=== PATIENT | male | born 1975 | race Caucasian/White ===

== ENCOUNTER 2017-08-20 08:56 | Inpatient (IN) ==
[2017-08-20] MEDS ORDERED: XOPENEX NEB INH ONE (09:23)
[2017-08-20] MEDS ORDERED: NS NEB INH SCH (09:30)
[2017-08-20 09:46] LABS: ALLEN TEST YES; BE -6.7 mmoll (-3.0-3.0); BLOOD TYPE ARTERIAL; DRAW SITE R RADIAL; METHB 0.8 % (0.0-1.5); O2(CT) 17.4 mL/dL (15.0-23.0); PCO2(98.6) 28 mmHg (35-45); PO2(98.6) 110 mmHg (60-100); SAMPLE BLOOD; SAO2 99.4 % (95.0-100.0); pH(98.6) 7.39 (7.35-7.45)
[2017-08-20 09:48] LABS: MODALITY CANNULA
[2017-08-20 09:51] LABS: MANUAL DIFF NEEDED? NO
[2017-08-20 09:55] LABS: BASO% 1.4 % (0.0-0.8); EOS% 1.4 % (0.0-10.0); HEMATOCRIT 39.3 % (42.0-52.0); HEMOGLOBIN 13.2 g/dL (14.0-18.0); IMM GRAN# 0.04 X1000 (0.0-0.04); IMM GRAN% 0.5 % (0.0-0.5); LYMPH# 1.18 X1000 (1.2-3.4); LYMPH% 16.1 % (20.5-51.1); MCH 32.9 PG (27-31); MCHC 33.6 g/dL (33-37); MONO# 0.92 X1000 (0.11-0.59); MONO% 12.6 % (1.7-9.3); MPV 10.2 FL (7.4-10.4); PLT 264 X1000 (130-400); RBC 4.01 XMIL (4.7-6.1)
[2017-08-20 10:13] LABS: AGAP 17; ALBUMIN 3.7 g/dL (3.5-5.0); ALKALINE PHOSPHATASE 129 U/L (32-122); BUN 14 mg/dL (8-22); CALCIUM 8.9 mg/dL (8.8-10.2); CHLORIDE 94 mmol/L (98-107); COSMO 262; GOT 192 U/L (10-34); GPT 196 U/L (10-44); MAGNESIUM 1.7 mg/dL (1.5-2.7); POTASSIUM 4.6 mmol/L (3.5-5.1); SODIUM 130 mmol/L (136-145); TCO2 19 mmol/L (25-35); TOTAL BILIRUBIN 2.15 mg/dL (0.20-1.00); TOTAL PROTEIN 7.3 g/dL (6.3-8.3)
[2017-08-20 10:19] LABS: CK PROFILE 346 U/L (24-204)
--- NOTE | 2017-08-20 10:35 | Diag Imaging Result Doc PS360 ---
EXAM: CHEST-2 VIEWS INDICATION: sob TECHNIQUE: 2 views COMPARISON: 05/05/2015 FINDINGS: There is suggestion of minimal subsegmental atelectasis in the right midlung zone. The lungs are grossly clear, otherwise. There is no discrete pleural fluid collection or pneumothorax. There are stable median sternotomy wires and a prosthetic heart valve. There is stable cardiomegaly. Central vasculature is unremarkable. IMPRESSION: Cardiomegaly and minimal subsegmental atelectasis at the right midlung zone. No definite acute pathology, otherwise. Electronically signed by Esteban Whitlock 08/20/2017 10:33 AM
[2017-08-20 10:37] LABS: CK INDEX 2.1 (0.0-2.5); CK-MB 7.37 ng/mL (0.0-5.0)
[2017-08-20] MEDS ORDERED: BENADRYL IV ONE (10:40)
[2017-08-20] MEDS ORDERED: LASIX IV ONE (10:46)
[2017-08-20] MEDS ORDERED: LASIX ONE (10:47)
[2017-08-20 11:19] LABS: INR > 8.32; PROTIME > 100.0 Seconds (9.2-11.7); PTT 43.9 Seconds (22.0-36.0)
--- NOTE | 2017-08-20 13:02 | Diag Imaging Result Doc PS360 ---
EXAM: CT ANGIOGRM/PULMONARY ARTERIES INDICATION: sob; elevated ddimer; on coumadin TECHNIQUE: In addition to standard thin section CTA images, coronal and radial MIPS were obtained. Dose reduction protocol was used. COMPARISON: 05/05/2015 FINDINGS: There is no evidence of pulmonary embolism. There is very little contrast in the aorta. There is mild patchy aortic atherosclerotic calcification but no evidence of aortic aneurysm. There is marked cardiomegaly similar to the previous study. Shotty nonspecific mediastinal lymph nodes are stable. There is patchy vague groundglass opacity throughout both lungs and interstitial thickening suggesting mild to moderate interstitial edema. There are very small bilateral pleural effusions. Limited views of the upper abdomen reveal a small amount of ascites tracking around the liver. IMPRESSION: 1.Cardiomegaly. 2.Mild to moderate pulmonary edema and very small bilateral effusions. 3.Small amount of ascites tracking around the liver. 4.No evidence of pulmonary embolism. Electronically signed by Esteban Whitlock 08/20/2017 1:00 PM
--- NOTE | 2017-08-20 13:39 | PROVIDER DOCUMENTATION ---
This chart was entered by Kristin Lai Scribe, acting as scribe for Olvin Hair MD. HPI-Respiratory General - General Chief Complaint: Shortness of Breath Stated Complaint: SOB, SWELLING Time Seen by Provider: 08/20/17 09:10 Source: patient Allergies/Adverse Reactions: Patient Allergies Allergy/AdvReac Type Severity Reaction Status Date / Time No Known Allergies Allergy Verified 08/20/17 09:33 Home Medications: Home Medication List Medication Instructions Recorded Confirmed Last Taken Type Warfarin [Coumadin] 4 mg PO QHS 03/24/13 08/20/17 05/08/17 History Furosemide [Lasix] 20 mg PO DAILY #30 tablet 05/07/15 08/20/17 05/09/17 Rx LISINOpril [Prinivil] 2.5 mg PO DAILY #30 tablet 05/07/15 08/20/17 05/09/17 Rx - History of Present Illness-Resp Nature of Presenting Problem: Pt is a 42 y/o M presents to the ED with shortness of breath and bilateral eye lid swelling. Pt states symptoms have gradual worsened over the past week. Pt denies chest pain. Pt states he is a smoker. Pt states dry cough. Pt states hx of ID with stents. Pt's aspirin held due to being on Coumadin. Quality of Pain: reports: tightness Severity in ED: reports: moderate Onset/Duration: reports: gradual, 1 week ago Timing: reports: still present, getting worse Exposure: reports: unknown cause Cough Quality/Degree: reports: moderate, dry cough Episode Frequency: chronic episodes Current Respiratory Medication Therapy: Initiated see nurses note Modifying Factors: improves with: nothing Associated Symptoms: reports: cough, shortness of breath, other (bilateral eyelid swelling) Similar Symptoms Previously?: Yes (present for one week ) Recently seen or treated by another doctor?: No Review of Systems - Adult - REVIEW OF SYSTEMS - ADULT Constitutional: denies: chills, fever Eyes: reports: other (bilateral eyelid swelling). denies: decreased vision, blurred vision, double vision Ears, Nose, Mouth & Throat: denies: ear pain, nose pain, throat pain Cardiovascular: denies: chest pain, heart murmur, irregular heart rate Respiratory: reports: cough, shortness of breath. denies: wheezing Gastrointestinal: denies: abdominal pain, diarrhea, nausea, vomiting Genitourinary: denies: dysuria, flank pain, hematuria Musculoskeletal: denies: bone pain, joint pain, neck pain Integumentary: denies: hives, itching, rash Neurological: denies: dizziness/vertigo, headache/migraines, numbness, seizure, syncope Psychiatric: denies: anxiety, depression, suicidal thoughts Endocrine: reports: no symptoms reported Hematologic/Lymphatic: reports: no symptoms reported Allergic/Immunologic: reports: no symptoms reported All Other Systems: Reviewed and Negative Past History - Adult - PAST MEDICAL HISTORY-ADULT Review of Records: reports: Nursing Assessment Review, Medications Reviewed, Social history reviewed & non-contributory. Major Childhood Illnesses: reports: denies history Cardiovascular: reports: CHF, heart valve problem ([facility]) Respiratory: reports: denies history Gastrointestinal: reports: denies history Obstetrical/Gynecological: reports: denies history Genitourinary: reports: denies history Musculoskeletal: reports: denies history Neurological: reports: denies history Endocrine/Immune: reports: denies history Other Conditions: reports: denies history - PRIOR SURGERIES/PROCEDURES Surgical/Procedure History: reports: CABG - IMMUNIZATION STATUS Childhood Immunizations: See Nurse Assessment Flu Vaccine: See Nurse Assessment - FAMILY HISTORY Family History: reviewed, not pertinent - SOCIAL HISTORY Smoking: cigarettes, less than 1 pack/day Provider spent 3-5 mins advising pt. on dangers of tobacco.: Discussed manners to quit use, and f/u contacts for add'l counseling. Substance Use: alcohol Alcohol Use Frequency: occasionally Number of drinks per typical drinking period:: 2 drinks Living Situation: family Physical Exam-General - PHYSICAL EXAM-ADULT Initial Vital Signs Reviewed: Yes - CONSTITUTIONAL General Appearance: alert, mild distress. negative: lethargic, slow to respond - EYES Eyes: PERRL/EOMI, pink conjunctivae. negative: pale conjunctivae, sunken eyes - HEAD, EARS, NOSE, MOUTH & THROAT HENMT: normocephalic/atraumatic, moist mucous membranes, angioedema (bilateral eyelids). negative: hearing deficit, pharyngeal erythema - NECK Neck: normal inspection. negative: lymphadenopathy, tender lateral - RESPIRATORY Respiratory: chest non-tender, lungs clear, normal breath sounds, increased rate . negative: crackles, rhonchi - CARDIOVASCULAR Cardiovascular: normal peripheral pulses, tachycardia, systolic murmur (with click at the end). negative: regular rate, rhythm - GASTROINTESTINAL (ABDOMEN) Abdominal Exam: normal bowel sounds, non tender, soft. negative: guarding, rebound - LYMPHATIC Lymphatic: no adenopathy. negative: enlargement, streaking - MUSCULOSKELETAL Back Exam: normal inspection. negative: ecchymosis, vertebral tenderness Extremity: normal range of motion, non-tender, pedal edema (bilateral 2 + pitting edema to lower extremities). negative: deformity, erythema - SKIN Integumentary: normal color, normal turgor, warm/dry, other (well healed surgical scar to mid chest). negative: diaphoresis, erythema, laceration(s), pallor, rash - NEUROLOGIC Neurologic: grossly normal. negative: aphasia, facial droop - PSYCHIATRIC Psych/Mental Status: normal mood/affect, oriented x 3. negative: paranoid, tearful Progress - PLAN OF CARE/RESULTS Progress/Plan/Lab Results: Vital Signs - 8 hr 08/20/17 08:58 08/20/17 09:15 08/20/17 09:31 Temperature 98.0 F Pulse Rate 111 H Respiratory Rate 24 Blood Pressure 133/118 O2 Sat by Pulse Oximetry 86 L 08/20/17 09:35 08/20/17 09:46 08/20/17 10:43 Temperature Pulse Rate 101 H 106 H Respiratory Rate 15 27 H Blood Pressure 136/93 O2 Sat by Pulse Oximetry 71 L 100 95 Laboratory Results - last 24 hr 08/20/17 08/20/17 08/20/17 09:23 09:30 09:30 WBC 7.31 RBC 4.01 L Hgb 13.2 L Hct 39.3 L MCV 98.0 MCH 32.9 H MCHC 33.6 RDW Std Deviation 13.9 Plt Count 264 MPV 10.2 Immature Gran % (Auto) 0.5 Neut % (Auto) 68.0 Lymph % (Auto) 16.1 L [place] % (Auto) 12.6 H Eos % (Auto) 1.4 Baso % (Auto) 1.4 H Immature Gran # (Auto) 0.04 Neut # (Auto) 4.97 Lymph # (Auto) 1.18 L [place] # (Auto) 0.92 H Eos # (Auto) 0.10 Baso # (Auto) 0.10 PT INR PTT (Actin FS) D-Dimer Specimen Type ARTERIAL Sample Site R RADIAL pH 7.39 pCO2 28 L pO2 110 H HCO3 19.6 L Base Excess -6.7 L Oxyhemoglobin 94.5 L ABG O2 Sat (Calculated) 17.4 ABG O2 Saturation 99.4 ABG Carboxyhemoglobin 4.10 H ABG Methemoglobin 0.8 Collin Test YES A-a O2 Difference 83.0 Total Hemoglobin 13.0 Lactate 1.90 Liter Flow 3.0 Blood Gas Modality CANNULA FiO2 % 32.0 Sodium 130 L Potassium 4.6 Chloride 94 L Carbon Dioxide 19 L Anion Gap 17 BUN 14 Creatinine 0.9 Estimated GFR/1.73 m2 > 60 BUN/Creatinine Ratio 16 Glucose 105 H Calculated Osmolality 262 Calcium 8.9 Magnesium 1.7 Total Bilirubin 2.15 H AST 192 H ALT 196 H Alkaline Phosphatase 129 H Creatine Kinase 346 H Creatine Kinase Index 2.1 CK-MB (CK-2) 7.37 H Troponin T Lex-S-Knsxmywmtfn Pept Total Protein 7.3 Albumin 3.7 Globulin 3.6 Albumin/Globulin Ratio 1.0 08/20/17 08/20/17 08/20/17 09:30 09:30 09:30 WBC RBC Hgb Hct MCV MCH MCHC RDW Std Deviation Plt Count MPV Immature Gran % (Auto) Neut % (Auto) Lymph % (Auto) [place] % (Auto) Eos % (Auto) Baso % (Auto) Immature Gran # (Auto) Neut # (Auto) Lymph # (Auto) [place] # (Auto) Eos # (Auto) Baso # (Auto) PT INR PTT (Actin FS) D-Dimer 1.97 H Specimen Type Sample Site pH pCO2 pO2 HCO3 Base Excess Oxyhemoglobin ABG O2 Sat (Calculated) ABG O2 Saturation ABG Carboxyhemoglobin ABG Methemoglobin Collin Test A-a O2 Difference Total Hemoglobin Lactate Liter Flow Blood Gas Modality FiO2 % Sodium Potassium Chloride Carbon Dioxide Anion Gap BUN Creatinine Estimated GFR/1.73 m2 BUN/Creatinine Ratio Glucose Calculated Osmolality Calcium Magnesium Total Bilirubin AST ALT Alkaline Phosphatase Creatine Kinase Creatine Kinase Index CK-MB (CK-2) Troponin T < 0.010 Ztz-Q-Ntctqcwzxti Pept 5504 H Total Protein Albumin Globulin Albumin/Globulin Ratio 08/20/17 10:34 WBC RBC Hgb Hct MCV MCH MCHC RDW Std Deviation Plt Count MPV Immature Gran % (Auto) Neut % (Auto) Lymph % (Auto) [place] % (Auto) Eos % (Auto) Baso % (Auto) Immature Gran # (Auto) Neut # (Auto) Lymph # (Auto) [place] # (Auto) Eos # (Auto) Baso # (Auto) PT > 100.0 H INR > 8.32 H* PTT (Actin FS) 43.9 H D-Dimer Specimen Type Sample Site pH pCO2 pO2 HCO3 Base Excess Oxyhemoglobin ABG O2 Sat (Calculated) ABG O2 Saturation ABG Carboxyhemoglobin ABG Methemoglobin Collin Test A-a O2 Difference Total Hemoglobin Lactate Liter Flow Blood Gas Modality FiO2 % Sodium Potassium Chloride Carbon Dioxide Anion Gap BUN Creatinine Estimated GFR/1.73 m2 BUN/Creatinine Ratio Glucose Calculated Osmolality Calcium Magnesium Total Bilirubin AST ALT Alkaline Phosphatase Creatine Kinase Creatine Kinase Index CK-MB (CK-2) Troponin T Tar-Q-Fcadltqvqir Pept Total Protein Albumin Globulin Albumin/Globulin Ratio Orders Category Date Time Status Cardiac Monitoring DIRECTED Care 08/20/17 09:24 Active Saline Loc NOW Care 08/20/17 09:24 Active CHEST-2 VIEWS [RAD] Stat Exams 08/20/17 09:24 Completed ABG [RESP] Routine Lab 08/20/17 09:23 Completed CBC WITH ELECTRONIC DIFF [HEME] Stat Lab 08/20/17 09:30 Completed CK PROFILE [SP CHEM] Stat Lab 08/20/17 09:30 Completed COMPREHENSIVE METABOLIC PANEL [CHEM] Stat Lab 08/20/17 09:30 Completed D-DIMER [CHEM] Stat Lab 08/20/17 09:30 Completed MAGNESIUM [CHEM] Stat Lab 08/20/17 09:30 Completed PRO B-NATRIURETIC PEPTIDE Stat Lab 08/20/17 09:30 Completed PROTIME WITH INR [COAG] Stat Lab 08/20/17 10:34 Completed PTT [COAG] Stat Lab 08/20/17 10:34 Completed TROPONIN T Stat Lab 08/20/17 09:30 Completed Diphenhydramine [Benadryl] Med 08/20/17 10:40 Discontinued 25 mg IV NOW ONE Furosemide [Lasix] Med 08/20/17 10:47 Discontinued 100 mg .ROUTE .STK-MED ONE Furosemide [Lasix] Med 08/20/17 10:46 Discontinued 60 mg IV NOW ONE Levalbuterol Neb [Xopenex Neb] Med 08/20/17 09:23 Discontinued 1.25 mg INH NOW ONE Sodium Chloride 0.9% Neb [Ns Neb] Med 08/20/17 09:30 Active 5 ml INH DIRECTED Aerosol Treatments Routine Oth 08/20/17 09:24 Completed Aerosol Treatments Stat Oth 08/20/17 09:24 Completed BIPAP Stat Oth 08/20/17 09:24 Active EKG [EKG] Stat Ther 08/20/17 09:24 Ordered Result Diagrams: 08/20/17 09:30 08/20/17 09:30 - EKG 1 Time of EKG reading by physician:: 09:00 EKG Read and Signed by:: Rosa Hair EKG Interpretation (*Must complete 3 of following elements*): Abnormal (LBBB) Rate: 110 Rhythm: sinus tachycardia Comments: possible left atrial enlargement; left axis deviation - XRAY 1 XRAY Study: Chest Impression: Abnormal (Cardiomegaly and minimal subsegmental atelectasis at the right midlung zone. No definite acute pathology, otherwise) - CONSULTS/PCP/HOSPITALIST Notification #1 *Consult/PCP/Hospitalist*: ALYSIA Arteaga for Hospitalist Time Discussed: 11:26 (Dr. Velez accepted Pt ) Reason/Comments: Dr. Hair consults with ESHA Arteaga about Pt Consult Disposition: Admit Departure - Departure Date of Disposition Decision: 08/20/17 Time of Disposition Decision: 11:27 DIAGNOSIS: SOB (shortness of breath), CHF (congestive heart failure) Disposition: ADMITTED INPATIENT 09 Certified Medical Emergency: Emergent Condition: Stable Referrals and Follow-Ups: Radha Melendrez MD [Primary Care Provider] - - Critical Care Note This patient required my direct & personal management of CC.: Yes Total Time (mins): 30 Critical Care Statement: This patient required my direct personal management to treat or rule out processes, the absence of which, could potentiallly result in sudden, clinically significant life or limb threatening deterioration. Attestation - Physician/ LATOYA Attestation Patient care was provided by Advanced Practice Provider:: No The physician spent face to face time with patient:: Yes Advanced Practice Provider documentation review:: Supervising physician onsite and consulted in the evaluation and care of this patient. The physician did have a face to face encounter with the patient. This chart was documented by the indicated scribe, (Kristin Lai Scribe) and accurately reflects the services I performed and decisions made by me, Rosa Hair MD, as attested by the provider's signature.
[2017-08-20] MEDS ORDERED: VITAMIN K PO ONE (14:11)
--- NOTE | 2017-08-20 16:25 | HISTORY AND PHYSICAL ---
PRIMARY CARE PROVIDER: Radha Melendrez that he is supposed to see for the first time September 01. GRINDER SET UP OPERATOR UNIVERSAL: Dr. Morales in [place]. CHIEF COMPLAINT: Shortness of breath. Generalized edema. HISTORY OF PRESENT ILLNESS: Mr. Peguero is a 42-year-old male with a medical history of coronary artery disease, systolic congestive heart failure, mechanical aortic valve replacement with aortic root and pulmonary hypertension who presents to the emergency room with complaints of shortness of breath over the last 1 week along with progressive swelling in the abdomen, the lower extremities and in the face. He states that he also has chills, some sinus clear phlegm, dry cough essentially states he cannot breathe when he sleeps on his back so he always sleeps on his side. Any distance greater than 20 feet causes him have significant shortness of breath. He has not weighed himself so was unsure if he has gained weight but feels like he has, denies, nausea vomiting, denies chest pain. He does feel like his guts feel a little bit sore. He woke up this morning feeling like he was smothering so came here for medical attention. He was found to have an INR greater than 8.32, he does take Coumadin at home. He states he did not take it last night. His D-dimer is elevated at 1.97. He had a chest CTA, pulmonary arteriogram which was negative for PE but did show mild to moderate pulmonary edema with bilateral effusions and ascites around the liver. He received Lasix in the ER and felt as though he is breathing much better. His saturations on room air was in the 80s on 4 L. It was low 90s. Will admit to CICU and consult Cardiology. PAST MEDICAL HISTORY: Coronary artery disease, myocardial infarction, apparently had OH in 2013, he had a congenital aortic valve, bicuspid aortic valve with aortic stenosis now status post mechanical aortic valve replacement with aortic root in 2011, he has systolic congestive heart failure with an EF around 20-25%. SURGICAL HISTORY: Aortic valve replacement with aortic root in 2011, also has cardiac stents, no other surgeries. SOCIAL HISTORY: Smokes a half a pack per day for 28 years. Drinks alcohol on a rare occasion he states 1-2 beers rarely. Denies illicit drug use. Lives at home with his mother, he is on disability, he is not without children. FAMILY HISTORY: Positive for coronary artery disease and diabetes mellitus type 2. ALLERGIES: No known drug allergies. HOME MEDICATIONS: Lasix 20 mg p.o. daily, lisinopril 2.5 mg p.o. daily, Coumadin 4 mg p.o. nightly. REVIEW OF SYSTEMS: Fourteen point review of systems were complete and all were negative except for those mentioned above HPI. Positive shortness of breath, clear phlegm but only in the mornings and dry cough, swelling. PHYSICAL EXAMINATION: VITAL SIGNS: Temperature 98.0 degrees, heart rate 113, respiratory rate 15, blood pressure 131/78, O2 saturation 98% on 3 L nasal cannula. GENERAL: Mr. Nima Peguero is a 42-year-old male, he is in no acute distress, he is able answer questions appropriately. HEENT: Atraumatic, normocephalic. Pupils equal, round, reactive to light. He does has a good bit of edema underneath eyes, mucous membranes are moist. NECK: Trachea midline. Mild JVD. CARDIOVASCULAR: S1, S2. Tachycardic rate, rhythm, no rubs, gallops or murmurs. The mechanical aortic valve is noted, mild JV day about a 1 to 2, negative for carotid bruits. He has got abdominal edema, lower extremity pitting edema about 1-2, he has got +2 dorsalis and radial pulses. PULMONARY: Clear to auscultate, bilateral breath sounds, decreased in the bases. No accessory muscle use or work of breathing noted currently on nasal cannula. GI: Soft, nontender, nondistended. Positive bowel sounds x4. EXTREMITIES: Moves all extremities equally. NEURO: A and O x4. Sensory is intact. SKIN: Warm, dry, intact. LABORATORY DATA: White blood cells 7000, hemoglobin 13, hematocrit 39, platelet count 264,000. INR is greater than 8.32, PTT is 43.9, D-dimer is 1.97. ABGs pH 7.39, pCO2 28 , PO2 is 110, bicarb 19, base excess -6, saturation 94%, lactate 1.9 this is on 3 L nasal cannula. Sodium 130, potassium 4.6, BUN 14, creatinine 0.9, glucose 105, magnesium 1.7, total bilirubin 2.15, AST 192, ALT 196, CK 346, index 2.1, MB 7.37, troponin less than 0.01, ProBNP 5504, albumin 3.7. IMAGING: Chest x-ray cardiomegaly, minimal subsegmental atelectasis in the right mid lung zone, no acute pathology. Pulmonary arteriogram cardiomegaly, mild to moderate pulmonary edema, very small bilateral pleural effusions. Small amount of ascites tracking around the liver, no evidence of pulmonary embolism. ASSESSMENT AND PLAN: 1. Acute on chronic systolic congestive heart failure. Lasix 60 mg IV given in the emergency room . It does not appear that he is on any sort of beta juan at home. He has heart rate that sinus tach, blood pressure stable at the moment in the 130s systolic, he does take Lasix 20 mg p.o. daily at home, will consult Cardiology. 2. Aortic valve replacement mechanical on Coumadin therapy. States he did not take it last night but still has a INR level greater than 8.32. He will receive 1 dose p.o. of vitamin K 5 mg and will check his INR daily, no signs of bleeding at this time. 3. Elevated D-dimer. Chest CTA ruled out pulmonary emboli. 4. Hyperbilirubinemia with transaminitis. This could be secondary to congestive heart failure. Will repeat in the morning. 5. Deep venous thrombosis prophylaxis SCDs, is actually supratherapeutic. 6. History of coronary artery disease and myocardial infarction with stents, no complaints chest pain at the time. Patient seen and examined by me face to face at the ED, all the lab work, vitals signs and images were reviewed, at the moment of my physical exam this patient was felling better, he does have a mechanical valve and he has been on coumadin, his INR is supratherapeutic, cardiology department will be on board, he will be monitor in the CIC unit, I agree with the assessment and plan, Rosie Torres MD Dictated by ALYSIA Hammonds for Bandar Livingston MD cc: ALYSIA Hammonds MD [facility]
[2017-08-20] MEDS ORDERED: LANOXIN IV SCH (17:00)
[2017-08-20] MEDS ORDERED: ALDACTONE PO ONE (17:50)
[2017-08-20] MEDS ORDERED: ZOFRAN IV PRN (17:50)
[2017-08-20 17:55] LABS: INR 5.26; PROTIME 61.4 Seconds (9.2-11.7)
--- NOTE | 2017-08-20 18:18 | CONSULTATION ---
DATE OF CONSULTATION: 08/20/2017 CHIEF COMPLAINT: Shortness of breath, swelling. HISTORY: Mr. Peguero is an unfortunate 42-year-old male who [facility]. She presented to the emergency department this morning, at about 9:30 in the morning, with symptoms of increasing dyspnea that has been going on for over a week, associated with swelling of the lower extremities. The patient acknowledges that this has happened before at least once and he was diagnosed with congestive heart failure back then. The present symptoms started initially like a bout of sneezing, cough, and some increasing dyspnea. He took some cough decongestant medication over the counter, however, it did not seem to work for him. At the time of presentation his chest x-ray shows cardiomegaly, minimal subsegmental atelectasis at the right midlung zone, no definite acute pathology. They checked a proBNP level. That was 5504. BUN and creatinine were normal. Sodium 130. They checked a D-dimer. That was elevated and, because of that, they went ahead and did a CT angiogram of the pulmonary arteries which has been reported by Dr. Whitlock as indicating cardiomegaly, mild-to- moderate pulmonary edema, very small bilateral effusions, small amount of ascites tracking around the liver, no evidence of pulmonary embolism. Of note, his PT INR is supratherapeutic, actually in toxic range with an INR of 8.32. Basically his blood is unclottable. His hemoglobin is 13.2, white count 7310. He denies having any chest pain. No dizziness or syncope. He has not seen any blood in the stools or in the urine. PAST MEDICAL HISTORY: His past history is significant for a finding of aortic stenosis back around 2011. At that time he was sent to [facility]. Back then he had a normal ejection fraction and his heart catheterization showed normal coronary arteries. The patient underwent aortic valve replacement with a Hemashield graft to the aortic root in [address] Goff. Since then he has been on anticoagulation, warfarin. 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 This led to acute intervention performed by Dr. Phillip. He performed intervention on the proximal LAD and the proximal mid circumflex. The right coronary artery was free of any disease. Since then the patient's ejection fraction dropped. It went down to 35%. He has been managed by Dr. Morales in [place]. However, the patient, again due to his lack of insurance, has not been able to comply with the followup appointments and also with the necessary pro- time checkups. His history includes some depression in the past with some suicidal ideation. SOCIAL HISTORY: He is single, lives with his mother. He has no children. Presently he is unemployed. 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 Presently he has been granted Medicaid and disability. The patient probably has some seasonal allergies. He smokes half a pack of cigarettes a day. He used to drink some beer occasionally. FAMILY HISTORY: Positive for coronary heart disease. He has 2 siblings who are alive. One sister has lupus. Brother is healthy. HOME MEDICATIONS: His home medicines at the time of this presentation included: 1. Warfarin 4 mg at bedtime. 2. Lisinopril 2.5 daily. 3. Furosemide 20 daily. 4. Coreg (carvedilol) 3.125 twice a day. ALLERGIES: He has no reported allergies. REVIEW OF SYSTEMS: Review of systems is basically positive for exertional dyspnea. Other than that, he has no major abnormalities on the 10 systems reviewed including cardiac , pulmonary, gastrointestinal, musculoskeletal, eyes, vision, skin, psychiatric, neurological , etc. He is not diabetic. He does not have any thyroid issues. PHYSICAL EXAMINATION: Vital signs: Blood pressure is 131/78, pulse initially 113, temperature 98 degrees, respirations 15. General: He is awake, alert, oriented, in no distress. HEENT: Slight prominence of the jugular veins. He does have some puffiness of the eyelids, some redness. He says that is not itchy. Chest: Shows diminished breath sounds diffusely. Some rhonchi. Cardiac: Heart sounds are regular and rhythmic. He does have a summation gallop and a closing click of the prosthetic mitral valve in diastole. Abdomen: Nontender. Soft. No hepatomegaly. Extremities: Showed trace edema, brawny edema 1+, with normal pulses. IMPRESSION: 1. Patient who presented with increasing dyspnea and radiographic and clinical findings consistent with congestive heart failure exacerbation. He has chronic systolic heart failure secondary to prior extensive myocardial infarction due to thrombotic occlusion of the LAD and circumflex. 2. 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 3. Long-term anticoagulation with warfarin. 4. Coumadin toxicity. 5. Medical noncompliance. RECOMMENDATIONS: At this point in time, we will try to adjust his medicines. I suggest to add digoxin and spironolactone to his regimen. Further advice will be forthcoming. Thank you again for the opportunity to participate in his evaluation. cc: Liam Feldman MD MTD
[2017-08-20 19:03] LABS: CK INDEX 1.9 (0.0-2.5); CK-MB 5.61 ng/mL (0.0-5.0)
[2017-08-20] MEDS: LASIX IV SCH (20:38)
[2017-08-21 03:55] LABS: CK INDEX 1.6 (0.0-2.5); CK-MB 4.52 ng/mL (0.0-5.0)
[2017-08-21 05:02] LABS: MANUAL DIFF NEEDED? NO
[2017-08-21 05:21] LABS: BASO% 0.8 % (0.0-0.8); EOS# 0.13 X1000 (0.0-0.7); EOS% 1.8 % (0.0-10.0); HEMATOCRIT 37.1 % (42.0-52.0); HEMOGLOBIN 12.5 g/dL (14.0-18.0); IMM GRAN# 0.02 X1000 (0.0-0.04); IMM GRAN% 0.3 % (0.0-0.5); LYMPH# 1.22 X1000 (1.2-3.4); LYMPH% 16.6 % (20.5-51.1); MCH 32.7 PG (27-31); MCHC 33.7 g/dL (33-37); MCV 97.1 FL (81-99); MONO# 0.86 X1000 (0.11-0.59); MONO% 11.7 % (1.7-9.3); MPV 10.4 FL (7.4-10.4); NEUT% 68.8 % (42.2-75.2); PLT 224 X1000 (130-400); RBC 3.82 XMIL (4.7-6.1)
[2017-08-21 05:56] LABS: INR 3.03; PROTIME 34.1 Seconds (9.2-11.7)
--- NOTE | 2017-08-21 06:03 | EKG Report ---
Test Performed on : 08/20/2017 09:00:56 AM Test Reason : reordered/cp Blood Pressure : / mmHG Vent. Rate : 110 BPM Atrial Rate : 110 BPM P-R Int : 194 ms QRS Dur : 172 ms QT Int : 340 ms P-R-T Axes : 010 -67 126 degrees QTc Int : 460 ms Sinus tachycardia. Possible Left atrial enlargement Left axis deviation Left bundle branch block Abnormal ECG When compared with ECG of 06-MAY-2015 06:58, No significant change was found Unconfirmed Result
--- NOTE | 2017-08-21 07:22 | Diag Imaging Result Doc PS360 ---
EXAM: CHEST-PORTABLE HISTORY: Heart failure TECHNIQUE: Portable AP COMPARISON: 08/20/2017 FINDINGS: Sternal wires are present. The heart remains mildly enlarged. Mild central vascular prominence. No pleural effusions identified. There are old left rib fractures. No consolidation. IMPRESSION: Mild cardiomegaly with central vascular prominence. Electronically signed by Abhijit Tinoco 08/21/2017 7:20 AM
[2017-08-21 07:34] LABS: CK INDEX 1.7 (0.0-2.5); CK-MB 4.72 ng/mL (0.0-5.0)
--- NOTE | 2017-08-21 07:35 | EKG Report ---
Test Performed on : 08/21/2017 06:48:52 AM Test Reason : Heart Failure Admission Blood Pressure : / mmHG Vent. Rate : 091 BPM Atrial Rate : 091 BPM P-R Int : 202 ms QRS Dur : 186 ms QT Int : 442 ms P-R-T Axes : 056 -79 108 degrees QTc Int : 543 ms Normal sinus rhythm. Left axis deviation Left bundle branch block Abnormal ECG When compared with ECG of 20-AUG-2017 09:00, (Unconfirmed) No significant change was found Confirmed by Edgardo LIANG, Collin Lopez ([id number]) on 08/21/2017 5:00:33 PM
--- NOTE | 2017-08-21 09:44 | PROGRESS NOTE ---
DATE: 08/21/2017 CHIEF COMPLAINT: Shortness of breath and fatigue. SUBJECTIVE: Mr. Peguero is feeling better today. His breathing is more comfortable, he is lying flat. He feels like he is back to his normal self. Chest x-ray done today shows mild cardiomegaly with central vascular prominence. His ProBNP has come down to 4738. His INR has also improved and now is therapeutic at 3.03. His cardiac enzymes were checked 3 times, and they are basically negative. His EKG today shows sinus rhythm with a pattern of interventricular conduction delay, leftward axis. This is unchanged when compared to prior EKGs done on him. He is not having any chest pain. OBJECTIVE: Blood pressure is 100/67, temperature 97.8, pulse 94, respirations 20. He is awake, alert and oriented, in no distress. HEENT is unremarkable. Slightly prominent jugular veins. Chest is clear to auscultation and percussion. Heart sounds are regular and rhythmic. He does have a third heart sound. He does have a diastolic closure click of his prosthetic [facility] valve. Abdomen is nontender. Extremities showed no edema. Neurologic: He follows commands, moves all 4 extremities. DIAGNOSTIC DATA: Blood work, as I said, shows negative cardiac enzymes. CK index was 1.9 and 1.6. The highest index was 2.1 the very moment of presentation. His total CPK highest was 346 and then 298. His TSH is 4.8. His hemoglobin is 12.5, white count 7360. Again , his INR has normalized. IMPRESSION: 1. The patient presented with systolic heart failure, decompensated. This is chronic, secondary to thrombotic occlusion of LAD and circumflex due to poorly anticoagulated status post aortic valve replacement. That happened 3 years ago. He had to have emergency intervention to both arteries. 2. Status post aortic valve replacement with a [employer] Kings valve for severe aortic stenosis in 2011. 3. Medical noncompliance. RECOMMENDATIONS: Since Mr. Peguero has now access to the benefits of disability and Medicaid, I have encouraged him to be more compliant with his regimen of Warfarin and his frequent checkups of ProTime and INR. I told him that he could be treated locally here in [place] since he is a resident of [place]. He does not need to commute to [place] for his basic care. We will make arrangements through the office and hopefully will get him stabilized on medical therapy. I have added digoxin and spironolactone to his regimen. We might consider further down the road up titration of beta blockers and GISELLE inhibitors depending on his levels of systemic blood pressure and his general tolerance to those medications. Further advice will be forthcoming. cc: Liam Feldman MD MTDD
[2017-08-21] MEDS: LASIX IV SCH ×2 (10:14→20:34)
[2017-08-21] MEDS: ALDACTONE PO SCH (10:15)
--- NOTE | 2017-08-21 12:22 | PROGRESS NOTE ---
DATE: 08/21/2017 SUBJECTIVE: The patient has no focal complaints. OBJECTIVE: Vital signs: Blood pressure 119/82, heart rate 93, respiratory rate of 16, temperature 97.8 degrees, 100% on room air. Cardiovascular: Regular rate and rhythm. He did have a nice click. Respiratory: Bilateral breath sounds clear to auscultation. GI: Soft, nontender, nondistended. Bowel sounds are positive. LABORATORY DATA: White count 7, hemoglobin and hematocrit 12 and 37, platelets 224. INR is down to 3. Creatine kinase is okay. TSH 4.8. PROBLEM LIST: 1. Congestive heart failure exacerbation. Acute systolic. He is on diuretics and Aldactone, and clinically seems to be doing okay. 2. Coagulopathy. INR has improved after vitamin K. This elevation in D-dimer I think was probably related to just his coagulopathy, but he did have a CT to evaluate for pulmonary embolus, which did not show pulmonary embolus. DISPOSITION: I think he will probably need another 24 hours of diuresis, and we will follow. He is also getting a myocardial perfusion scan today and decide about long-term, decide about further treatment options. Echo has been ordered and is still pending. cc: Ellis Cardenas MD
--- NOTE | 2017-08-21 14:46 | Diag Imaging Result Document ---
PROCEDURE NAME: MYOCARDIAL PERFU SCAN, REST - 08/21/2017 SUMMARY: 34.5 mCi of Cardiolite was injected for the resting myocardial perfusion scan. The left ventricle was severely dilated. There is a large-sized, severe grade defect in the anterior wall in the left ventricular apex and left ventricle in the lateral wall. There is increased myocardial uptake in the right ventricle. This was only a resting scan. Left ventricular ejection fraction by SPECT was 19%. CONCLUSIONS: 1. Left ventricle severely dilated. 2. There is a large-sized, severe grade defect in the anterior wall, in the left ventricular apex. In the left ventricular lateral wall as well there is a minimal defect. 3. Left ventricular ejection fraction 19%. cc: MD Liam Riley MD
--- NOTE | 2017-08-21 15:51 | ECHO REPORT ---
ORDER DATE: 08/21/2017 ECHOCARDIOGRAPHIC MEASUREMENTS: 1. Interventricular septum 1.2. 2. Left ventricular posterior wall 1.3. 3. Diastolic diameter 6.5. 4. Left atrium 4. 5. Right atrium 4.9. SUMMARY OF 2-DIMENSIONAL IMAGIN. Dilated left ventricle with severely reduced systolic function. Estimated ejection fraction of 15%. 2. Mechanical prosthetic valve in the aortic position was stable. 3. Mitral valve was normal. Tricuspid valve was normal. Pulmonic valve was normal. 4. Peak velocity across the aortic valve was 2.4 m/sec with a mean gradient of 12 mmHg. Given the severe LV dysfunction, this could be underestimating the pressures across the aortic valve. However, aortic valve leaflets are moving normally, associated with mild aortic regurgitation. 5. Mechanical prosthetic aortic valve noted. 6. There is mild to moderate mitral regurgitation. 7. Mild to moderate tricuspid regurgitation. Peak velocity across the tricuspid valve was 3.7 m/sec. Pulmonary artery systolic pressure of 63-68 mmHg there is pulmonary arterial hypertension. 8. There is mild pulmonary regurgitation. 9. There is no pericardial effusion or obvious intracardiac mass or thrombus. cc: MD Jenni Riley CRNP
[2017-08-21] MEDS ORDERED: COUMADIN PO SCH (21:00)
[2017-08-22 05:39] LABS: HEMATOCRIT 35.3 % (42.0-52.0); HEMOGLOBIN 11.9 g/dL (14.0-18.0); MCH 33.2 PG (27-31); MCHC 33.7 g/dL (33-37); MCV 98.6 FL (81-99); RBC 3.58 XMIL (4.7-6.1)
[2017-08-22 05:54] LABS: INR 1.89; PROTIME 20.7 Seconds (9.2-11.7)
[2017-08-22 05:55] LABS: AGAP 10; BUN 15 mg/dL (8-22); CALCIUM 8.5 mg/dL (8.8-10.2); CHLORIDE 99 mmol/L (98-107); COSMO 276; MAGNESIUM 1.8 mg/dL (1.5-2.7); POTASSIUM 3.9 mmol/L (3.5-5.1); SODIUM 138 mmol/L (136-145); TCO2 29 mmol/L (25-35)
--- NOTE | 2017-08-22 06:37 | EKG Report ---
Test Performed on : 08/22/2017 06:02:38 AM Test Reason : Heart Failure Admission Blood Pressure : / mmHG Vent. Rate : 091 BPM Atrial Rate : 091 BPM P-R Int : 206 ms QRS Dur : 178 ms QT Int : 428 ms P-R-T Axes : 061 -78 103 degrees QTc Int : 526 ms Normal sinus rhythm. Possible Left atrial enlargement Left axis deviation Left bundle branch block Abnormal ECG When compared with ECG of 21-AUG-2017 06:48, No significant change was found Confirmed by Edgardo LIANG, Collin Lopez ([id number]) on 08/23/2017 9:58:22 AM
[2017-08-22] MEDS ORDERED: COUMADIN PO ONE (07:51)
[2017-08-22] MEDS ORDERED: LANOXIN PO SCH (09:00)
[2017-08-22] MEDS ORDERED: PRINIVIL PO SCH ×2 (09:00)
[2017-08-22] MEDS: LASIX IV SCH (09:57)
[2017-08-22] MEDS: ALDACTONE PO SCH (09:57)
[2017-08-22 11:23] VITALS: BP 114/60
--- NOTE | 2017-08-22 11:30 | PROGRESS NOTE ---
DATE: 08/22/2017 CHIEF COMPLAINT: Shortness of breath, Coumadin toxicity. SUBJECTIVE: Mr. Peguero is feeling much better, basically back to his normal self. He has no chest pain, no shortness of breath. OBJECTIVE: Blood pressure is 110/73, temperature 97.7, pulse 93, respirations 16. He is awake, alert and oriented, no distress. HEENT is unremarkable. Chest is clear to auscultation and percussion. Heart sounds are regular and rhythmic. No gallop or murmur is noted. He does have the closing click of the aortic prosthetic valve. Abdomen is nontender. Extremities showed no edema. Neurologic: He follows commands, moves all 4 extremities. DIAGNOSTIC DATA: Blood work today shows his INR has become subtherapeutic at 1.89. PT is 20.7. Sodium is 138, potassium 3.9, BUN is 15, creatinine 0.9. IMPRESSION: 1. The patient presented with decompensated chronic congestive systolic heart failure secondary to previous myocardial infarction due to thrombosis of his prosthetic [employer] aortic valve. 2. Coumadin toxicity. RECOMMENDATIONS: At this point in time, I would continue present medical therapy. I would suggest to give an extra dose of Warfarin before discharge. He needs to follow up with his ProTime and INR. My office will make arrangements to see him regularly for this purpose. Further advice will be forthcoming. Thank you for the opportunity to participate in his evaluation. cc: Liam Feldman MD
--- NOTE | 2017-08-23 06:08 | DISCHARGE SUMMARY ---
ADMISSION DATE: 08/20/2017 DISCHARGE DATE: 08/22/2017 CONSULTATIONS: Dr. Feldman of Cardiology. PERTINENT PROCEDURES: Pulmonary arteriogram showed cardiomegaly mild to moderate pulmonary edema and very small bilateral effusions. Small amount of ascites with tracing around the liver. No evidence of PE. Perfusion scan did not show any infarction. Echocardiogram showed a dilated left ventricle with severely reduced systolic function with an EF of 15%. Mechanical prosthetic valve in the aortic position and pericardial effusion. DISCHARGE DIAGNOSES: 1. Acute systolic congestive heart failure exacerbation improved with diuresis. 2. Coumadin toxicity resolved and are improved after vitamin K. The patient will be continued on Coumadin and follow up with PT/INR. Patient will need to follow up with his PT and INR's. Dr. Feldman will make arrangements in his office to see him regularly for this purpose. 3. Decompensated systolic heart failure chronic secondary to thrombotic occlusion of the LAD and circumflex due to poor anticoagulation status post aortic valve replacement that happened 3 years ago. Patient had to have emergent intervention to both arteries. 4. Status post aortic valve replacement with a [employer] valve for severe aortic stenosis in [address] Goff at [facility]. The patient was on lifelong Coumadin. 5. Medical noncompliance secondary to no insurance and being out of work. The patient now has access to benefits of disability and Medicaid. He has been encouraged to be compliant with his regimen of warfarin and show up for his frequent checkups for his PT and INR. This has all been set up with Dr. Feldman in his office. He does not need to commute to [place] for his basic care. HOSPITAL COURSE: Mr. Peguero is a 42-year-old, male who presented to the ED with symptoms of increased dyspnea that week that had been ongoing for over a week associated with swelling of his lower extremity as well as abdomen. He is unable to walk any distance greater than 50 feet without it causing him significant shortness of breath. He is unsure of his weight gain, he has not weighed himself. When he awoke on the morning of his admission , he had a feeling like he was smothering so he came to the ED for medical attention. He was found to have an INR of greater than 8.32. He takes Coumadin at home for a mechanical aortic valve replacement for severe aortic stenosis back in 2011 at [facility] with [address]. Goff. He has been on anticoagulation with warfarin since that time. However, due to the patient having no insurance and very poor management of his anticoagulation, he developed thrombotic myocardial infarction with thrombus of the LAD and circumflex in July of 2014 that led to acute intervention performed by in [place]. Since that time, his EF went down to 35%. He was managed by Dr. Morales in [place]. However, again due to lack of insurance he has not been able to comply and follow up with appointments, and make necessary PT and INR check ups. Other history includes depression and suicidal ideation. He did have an elevated D-dimer of 1.[address] of the chest was negative for PE but show but did show mild to moderate pulmonary edema bilateral effusions, ascites around the liver. He received Lasix in the ED. It did improve his breathing on room air. His oxygen was in the 80s on 4 L. He was in the low 90s. The patient was admitted to CICU with a cardiology consult. He was continued on IV diuresis. He was given a dose of p.o. vitamin K in the ED and did daily PT and INR checks. He underwent a myocardial perfusion scan that just showed a large size severe grade defect in the anterior wall in the left ventricular apex and in the ventricular lateral wall as well there was a minimal defect but no medical induced ischemia. Echocardiogram showed a dilated left ventricle with severely reduced systolic function with an EF of 15%. Aldactone and Digoxin were added along with Prinivil to his daily regimen. He was initiated back on Coumadin. Mr. Peguero feels that he is back to his normal self. He denies any shortness of breath or chest pain. He will be discharged back home with his mother. PHYSICAL EXAMINATION: Vital Signs at time of discharge, temperature is 98.5 degrees, heart rate 87, respirations 16, blood pressure is 114/60, O2 is 94% on room air. DISCHARGE DIET: Healthy heart. DISCHARGE MEDICATIONS: 1. As per Dr. Clemente. 2. Lasix 20 mg p.o. daily. 3. Prinivil 5 mg p.o. daily. 4. Aldactone 25 mg p.o. daily. 5. Coumadin 4 mg p.o. at bedtime. FOLLOWUP: Mr. Peguero will need to go to the [facility] and get his INR checked either Monday or Monday of this week. Dr. Feldman will make arrangements through his office to follow his PT and INR. We have also advised him that now that he does have insurance he needs to keep his follow-up appointment with Radha Melendrez MD on 09/01 and [address] as per Dr. Feldman he can be treated locally here in [place] at the [facility] as he is a resident of [place] that he did not need to commute to [place] for his basic care if he so chooses. He can continue to follow up with Dr. Morales. He has been educated on smoking cessation as well as the means to quit as well as being compliant with medications. He can return to the ED for any worsening of symptoms. Dictated by ALYSIA Dickson for Jourdan Clemente MD cc: MD Radha Jacobo MD Time spent for discharge 36 minutes. JESSIED
== END 2017-08-22 13:29 | disposition home or self-care (01) ==
LOC: ED 08:56 → 3S 17:27 → SUATTDRO 17:27 → 4N 08-21 23:59
PROVIDERS: ATTEND Internal Medicine

== ENCOUNTER 2019-05-30 20:59 | Inpatient (IN) ==
[2019-05-30] MEDS ORDERED: NS 1,000 ML ONE (21:03)
[2019-05-30] MEDS ORDERED: CARDIZEM ONE (21:06)
[2019-05-30] MEDS ORDERED: CARDIZEM IV ONE ×2 (21:17→22:12)
[2019-05-30] MEDS ORDERED: NS 1,000 ML IV ONE ×3 (21:17→22:13)
--- NOTE | 2019-05-30 21:34 | EKG Report ---
Test Performed on : 05/30/2019 8:59:50 PM Test Reason : tachycardia Blood Pressure : / mmHG Vent. Rate : 163 BPM Atrial Rate : 159 BPM P-R Int : 000 ms QRS Dur : 186 ms QT Int : 318 ms P-R-T Axes : 000 120 -40 degrees QTc Int : 523 ms Wide QRS tachycardia. Right axis deviation Left ventricular hypertrophy with QRS widening Abnormal ECG When compared with ECG of 13-SEP-2017 06:54, Wide QRS tachycardia. has replaced Sinus rhythm. Vent. rate has increased BY 71 BPM Unconfirmed Result
[2019-05-30 22:09] LABS: BASO# 0.02 X1000 (0.0-0.2); BASO% 0.2 % (0.0-0.8); EOS# 0.07 X1000 (0.0-0.7); EOS% 0.6 % (0.0-10.0); HEMATOCRIT 38.6 % (42.0-52.0); HEMOGLOBIN 14.3 g/dL (14.0-18.0); IMM GRAN# 0.04 X1000 (0.0-0.04); IMM GRAN% 0.3 % (0.0-0.5); LYMPH# 1.54 X1000 (1.2-3.4); LYMPH% 12.8 % (20.5-51.1); MCH 34.9 PG (27-31); MCV 94.1 FL (81-99); MONO% 10.8 % (1.7-9.3); MPV 11.4 FL (7.4-10.4); NEUT# 9.05 X1000 (1.4-6.5); NEUT% 75.3 % (42.2-75.2); PLT 182 X1000 (130-400); RDW 12.3 % (11.5-14.5); WBC 12.02 X1000 (4.8-10.8)
[2019-05-30] MEDS ORDERED: CARDIZEM 125 MG in NS 100 ML IV SCH (22:15)
[2019-05-30 22:29] LABS: ALBUMIN 4.3 g/dL (3.5-5.0); CALCIUM 9.8 mg/dL (8.8-10.2); MAGNESIUM 1.8 mg/dL (1.5-2.7); POTASSIUM 4.2 mmol/L (3.5-5.1); TOTAL BILIRUBIN 0.6 mg/dL (0.20-1.00); TOTAL PROTEIN 7.4 g/dL (6.3-8.3)
[2019-05-30] MEDS ORDERED: CARDIZEM 125 MG/D5W 125 MG/125 ML IVPB ONE (22:35)
[2019-05-30 22:38] LABS: INR 2.3; PROTIME 26.4 Seconds (11.0-16.0)
[2019-05-30 22:39] LABS: PTT 37.2 Seconds (22.3-41.8)
[2019-05-30] MEDS ORDERED: CARDIZEM 125 MG/D5W 125 MG/125 ML IVPB IV SCH (22:55)
[2019-05-30 23:15] LABS: CK INDEX 2.6 (0.0-2.5); CK-MB 8.59 ng/mL (0.0-5.0)
--- NOTE | 2019-05-30 23:29 | EKG Report ---
Test Performed on : 05/30/2019 11:26:07 PM Test Reason : CP Blood Pressure : / mmHG Vent. Rate : 104 BPM Atrial Rate : 104 BPM P-R Int : 000 ms QRS Dur : 164 ms QT Int : 418 ms P-R-T Axes : 000 018 157 degrees QTc Int : 549 ms Undetermined rhythm Left bundle branch block Abnormal ECG When compared with ECG of 30-MAY-2019 20:59, (Unconfirmed) Current undetermined rhythm precludes rhythm comparison, needs review Unconfirmed Result
[2019-05-31] MEDS ORDERED: NS 1,000 ML IV ONE ×3 (00:42→05:22)
[2019-05-31 02:08] LABS: CK INDEX 3.4 (0.0-2.5); CK-MB 8.85 ng/mL (0.0-5.0)
[2019-05-31] MEDS ORDERED: CORDARONE IV ONE (02:33)
[2019-05-31 03:12] LABS: BILIRUBIN URINE 1+ (NEGATIVE); BLOOD URINE 1+ (NEGATIVE); CLARITY CLEAR (CLEAR); COLOR YELLOW; GLUCOSE URINE NEGATIVE (NEGATIVE); KETONE URINE NEGATIVE (NEGATIVE); LEUKOCYTES URINE NEGATIVE (NEGATIVE); NITRITE URINE NEGATIVE (NEGATIVE); PH URINE 6.5; PROTEIN URINE TRACE mg/dL (NEGATIVE); SP GRAVITY URINE 1.015; UROBILINOGEN URINE NORMAL
[2019-05-31] MEDS ORDERED: LEVOPHED ONE (03:17)
[2019-05-31] MEDS ORDERED: D5 1/2 NS 500 ML ONE (03:19)
[2019-05-31 03:27] LABS: URINE BACTERIA 4+ /HFP; URINE CRYSTAL NONE SEEN /HPF; URINE EPITHELIAL CELLS <10 /HPF (<10); URINE RBC <10 /HPF (<10); URINE SOURCE CLEAN CATCH; URINE WBC <10 /HPF (<10); URINE YEAST NONE SEEN /HPF
[2019-05-31] MEDS: LEVOPHED 8 MG in D5 1/2 NS 250 ML IV SCH ×7 (03:38→09:38)
[2019-05-31 07:07] LABS: CALCIUM 8.1 mg/dL (8.8-10.2); CREATININE 7.4 mg/dL (0.7-1.2); POTASSIUM 3.8 mmol/L (3.5-5.1)
[2019-05-31 07:13] LABS: BASO# 0.02 X1000 (0.0-0.2); BASO% 0.2 % (0.0-0.8); EOS# 0.07 X1000 (0.0-0.7); EOS% 0.7 % (0.0-10.0); HEMATOCRIT 33.8 % (42.0-52.0); IMM GRAN# 0.05 X1000 (0.0-0.04); IMM GRAN% 0.5 % (0.0-0.5); LYMPH# 1.02 X1000 (1.2-3.4); LYMPH% 10.9 % (20.5-51.1); MCH 33.7 PG (27-31); MCHC 35.5 g/dL (33-37); MCV 94.9 FL (81-99); MONO% 10.6 % (1.7-9.3); MPV 10.8 FL (7.4-10.4); NEUT# 7.23 X1000 (1.4-6.5); NEUT% 77.1 % (42.2-75.2); PLT 147 X1000 (130-400); RBC 3.56 XMIL (4.7-6.1); RDW 12.2 % (11.5-14.5); WBC 9.39 X1000 (4.8-10.8)
--- NOTE | 2019-05-31 07:27 | Diag Imaging Result Doc PS360 ---
EXAM: CT HEAD W/O CONTRAST - 05/30/2019 HISTORY: new sz TECHNIQUE: CT head without contrast COMPARISON: 02/08/2012 FINDINGS: There is no evidence of intracranial hemorrhage, mass effect, midline shift, or hydrocephalus. There is no evidence of infarct, although acute infarcts may not be immediately visible. There is no evidence of skull fracture. There is some mild paranasal sinus mucosal thickening noted. IMPRESSION: No visible acute intracranial abnormality. No hemorrhage or mass effect. The on-call radiologist provided preliminary results at 12:24 AM on 05/31/2019. This exam was performed using automated exposure control, adjustment of mA or kV according to patient size, and/or use of iterative reconstruction technique. Electronically signed by Herbert Juarez 05/31/2019 7:25 AM
--- NOTE | 2019-05-31 07:30 | Diag Imaging Result Doc PS360 ---
EXAM: CHEST-1 VIEW - 05/30/2019 HISTORY: tachy, new sz TECHNIQUE: Portable chest COMPARISON: 09/12/2017 FINDINGS: Heart size appears within normal limits and decreased compared to prior. There are sternal wires from previous surgery again seen. There has been interval placement of transvenous cardiac pacemaker. The lungs appear clear. There is no pleural effusion or pneumothorax identified. There is old fracture deformity of the posterior left sixth rib noted. IMPRESSION: No evidence of acute disease. Electronically signed by Herbert Juarez 05/31/2019 7:27 AM
[2019-05-31 07:36] LABS: CK INDEX 3.8 (0.0-2.5); CK-MB 10.82 ng/mL (0.0-5.0)
--- NOTE | 2019-05-31 07:36 | PROVIDER DOCUMENTATION ---
This chart was entered by Juliann Whitlock Scribe, acting as scribe for Ever Magaña MD. HPI-Neurological Disorder - General Chief Complaint: Seizure Stated Complaint: Seizure Time Seen by Provider: 05/30/19 21:34 Source: patient, family Allergies/Adverse Reactions: Patient Allergies Allergy/AdvReac Type Severity Reaction Status Date / Time No Known Allergies Allergy Verified 08/20/17 09:33 Home Medications: Home Medication List Medication Instructions Recorded Confirmed Last Taken Type Warfarin [Coumadin] 4 mg PO QHS 03/24/13 05/30/19 09/10/17 21:00 History LISINOpril [Prinivil] 5 mg PO DAILY #60 tablet 08/22/17 05/30/19 09/10/17 09:00 Rx Carvedilol [Coreg] 12.5 mg PO BID 05/30/19 05/30/19 Unknown History Spironolactone 25 mg PO DAILY 05/30/19 05/30/19 Unknown History - History of Present Illness-Neuro Nature of Presenting Problem: 44 yowm presents w/family to er w/cc 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 pt postictal was confused. pt hasn't had appetite in 4 days, vomiting since monday, and has not voided in 3 days. pt had some alcohol on monday or monday. pt sts drinks beer freq. pt mother rpts pt's heart functions at 20%, has a mechanical valve. pt is hypotensive, 77/43. denies cp, sob, fever and chills. hx chf. has no hx of seizures. - Seizure First time to have a seizure?: Yes Witnessed seizure?: Yes (family) How many seizure episodes?: 1 Episode Frequency: no prior episodes Character of Seizure: reports: generalized shaking all over Post-ictal Symptoms: reports: confusion Review of Systems - Adult - REVIEW OF SYSTEMS - ADULT Constitutional: reports: no symptoms reported. denies: chills, fever, fatique Eyes: reports: no symptoms reported Ears, Nose, Mouth & Throat: reports: no symptoms reported Cardiovascular: reports: no symptoms reported. denies: chest pain, edema, palpitations Respiratory: reports: no symptoms reported. denies: excessive sputum production, shortness of breath, wheezing Gastrointestinal: reports: see HPI, poor appetite, vomiting. denies: abdominal pain, hematemesis, constipation Genitourinary: reports: see HPI, urinary retention Musculoskeletal: reports: no symptoms reported Integumentary: reports: no symptoms reported Neurological: reports: see HPI, seizure, other (confusion postictal). denies: dizziness/vertigo, headache/migraines, slurred speech Psychiatric: reports: no symptoms reported Endocrine: reports: no symptoms reported Hematologic/Lymphatic: reports: no symptoms reported Allergic/Immunologic: reports: no symptoms reported All Other Systems: Reviewed and Negative Past History - Adult - PAST MEDICAL HISTORY-ADULT Review of Records: reports: Old Records Reviewed, Nursing Assessment Review, Medications Reviewed, Social history reviewed & non-contributory. Major Childhood Illnesses: reports: denies history Cardiovascular: reports: CHF, HTN, heart valve problem ([facility]) Respiratory: reports: denies history Gastrointestinal: reports: denies history Obstetrical/Gynecological: reports: denies history Genitourinary: reports: denies history Musculoskeletal: reports: denies history Neurological: reports: denies history Psychiatric: reports: denies history Endocrine/Immune: reports: denies history Other Conditions: reports: denies history - PRIOR SURGERIES/PROCEDURES Surgical/Procedure History: reports: CABG - IMMUNIZATION STATUS Childhood Immunizations: See Nurse Assessment Flu Vaccine: See Nurse Assessment - FAMILY HISTORY Family History: reviewed, not pertinent - SOCIAL HISTORY Smoking: cigarettes, less than 1 pack/day Provider spent 3-5 mins advising pt. on dangers of tobacco.: Discussed manners to quit use, and f/u contacts for add'l counseling. Substance Use: alcohol Physical Exam- Neurological - Physical Exam-Neuro Initial Vital Signs Reviewed: Yes General Appearance: alert, mild distress. negative: anxious, obtunded, combative Eye Exam: bilateral eye: normal inspection, PERRL, EOMI HENMT: normocephalic/atraumatic, moist mucous membranes, normal ENT inspection, dental decay (missing teeth) Head Injury: no evidence of injury Neck: non-tender, full range of motion, supple, normal inspection Respiratory: chest non-tender, lungs clear, normal breath sounds Cardiovascular: normal peripheral pulses, regular rate, rhythm, no edema, no gallop, no JVD, no murmur, other (MV working properly) Abdominal Exam: normal bowel sounds, non tender, soft Lymphatic: no adenopathy Peripheral Pulses: radial (R): 2+, radial (L): 2+ Extremity: normal range of motion, non-tender, 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: normal hearing, normal speech, PERRL Motor/Sensory: no motor deficit, no sensory deficit Neurologic: grossly normal, no motor/sensory deficits, other (cn II-XII norm) Integumentary: normal color, normal turgor, warm/dry Psych/Mental Status: normal mood/affect, normal thought content, normal thought process, oriented x 3 - Glascow Coma Scale Best Eye Response: (4) open spontaneously Best Verbal Response: (5) oriented Best Motor Response: (6) obeys commands Total Glascow Score: 15 Progress - PLAN OF CARE/RESULTS Progress/Plan/Lab Results: Vital Signs - 8 hr 05/31/19 01:00 05/31/19 03:53 05/31/19 05:13 Temperature 97.7 F 98.0 F Pulse Rate 102 H 85 106 H Respiratory Rate 20 20 18 Blood Pressure 82/45 79/50 133/70 O2 Sat by Pulse Oximetry 98 98 98 05/31/19 05:53 Temperature 98.1 F Pulse Rate 80 Respiratory Rate 18 Blood Pressure 120/72 O2 Sat by Pulse Oximetry 98 Laboratory Results - last 24 hr 05/30/19 05/30/19 05/30/19 21:04 21:04 21:04 WBC 12.02 H RBC 4.10 L Hgb 14.3 Hct 38.6 L MCV 94.1 MCH 34.9 H MCHC 37.0 RDW Std Deviation 12.3 Plt Count 182 MPV 11.4 H Immature Gran % (Auto) 0.3 Neut % (Auto) 75.3 H Lymph % (Auto) 12.8 L Hardy % (Auto) 10.8 H Eos % (Auto) 0.6 Baso % (Auto) 0.2 Immature Gran # (Auto) 0.04 Neut # (Auto) 9.05 H Lymph # (Auto) 1.54 Hardy # (Auto) 1.30 H Eos # (Auto) 0.07 Baso # (Auto) 0.02 PT INR PTT (Actin FS) Sodium Potassium Chloride Carbon Dioxide Anion Gap BUN Creatinine Estimated GFR/1.73 m2 BUN/Creatinine Ratio Glucose Calculated Osmolality Calcium Magnesium Total Bilirubin AST ALT Alkaline Phosphatase Creatine Kinase Creatine Kinase Index CK-MB (CK-2) Troponin T 0.219 H Total Protein Albumin Globulin Albumin/Globulin Ratio Plasma Lactate Urine Source Urine Color Urine Clarity Urine pH Ur Specific [place] Urine Protein Urine Ketones Urine Blood Urine Nitrite Urine Bilirubin Urine Urobilinogen Urine Microscopic RBC Urine WBC Urine Microscopic WBC Ur Epithelial Cells Urine Crystals Urine Bacteria Urine Casts Urine Yeast Urine Glucose Plasma/Serum Ethyl Alc 05/30/19 05/30/19 05/30/19 21:04 21:04 23:10 WBC RBC Hgb Hct MCV MCH MCHC RDW Std Deviation Plt Count MPV Immature Gran % (Auto) Neut % (Auto) Lymph % (Auto) Hardy % (Auto) Eos % (Auto) Baso % (Auto) Immature Gran # (Auto) Neut # (Auto) Lymph # (Auto) Hardy # (Auto) Eos # (Auto) Baso # (Auto) PT 26.4 H INR 2.30 PTT (Actin FS) 37.2 Sodium 128 L Potassium 4.2 Chloride 79 L Carbon Dioxide 22 L Anion Gap 28 BUN 86 H Creatinine 11.0 H* Estimated GFR/1.73 m2 5 BUN/Creatinine Ratio 8 Glucose 108 H Calculated Osmolality 284 Calcium 9.8 Magnesium 1.8 Total Bilirubin 0.60 AST 25 ALT 15 Alkaline Phosphatase 76 Creatine Kinase 325 H Creatine Kinase Index 2.6 H CK-MB (CK-2) 8.59 H Troponin T Total Protein 7.4 Albumin 4.3 Globulin 3.0 Albumin/Globulin Ratio 1.0 Plasma Lactate 1.5 Urine Source Urine Color Urine Clarity Urine pH Ur Specific [place] Urine Protein Urine Ketones Urine Blood Urine Nitrite Urine Bilirubin Urine Urobilinogen Urine Microscopic RBC Urine WBC Urine Microscopic WBC Ur Epithelial Cells Urine Crystals Urine Bacteria Urine Casts Urine Yeast Urine Glucose Plasma/Serum Ethyl Alc 05/31/19 05/31/19 05/31/19 01:05 01:05 02:41 WBC RBC Hgb Hct MCV MCH MCHC RDW Std Deviation Plt Count MPV Immature Gran % (Auto) Neut % (Auto) Lymph % (Auto) Hardy % (Auto) Eos % (Auto) Baso % (Auto) Immature Gran # (Auto) Neut # (Auto) Lymph # (Auto) Hardy # (Auto) Eos # (Auto) Baso # (Auto) PT INR PTT (Actin FS) Sodium Potassium Chloride Carbon Dioxide Anion Gap BUN Creatinine Estimated GFR/1.73 m2 BUN/Creatinine Ratio Glucose Calculated Osmolality Calcium Magnesium Total Bilirubin AST ALT Alkaline Phosphatase Creatine Kinase 260 H Creatine Kinase Index 3.4 H CK-MB (CK-2) 8.85 H Troponin T 0.173 H Total Protein Albumin Globulin Albumin/Globulin Ratio Plasma Lactate Urine Source CLEAN CATCH Urine Color YELLOW Urine Clarity CLEAR Urine pH 6.5 Ur Specific [place] 1.015 Urine Protein TRACE A Urine Ketones NEGATIVE Urine Blood 1+ A Urine Nitrite NEGATIVE Urine Bilirubin 1+ A Urine Urobilinogen NORMAL Urine Microscopic RBC <10 Urine WBC NEGATIVE Urine Microscopic WBC <10 Ur Epithelial Cells <10 Urine Crystals NONE SEEN Urine Bacteria 4+ Urine Casts Urine Yeast NONE SEEN Urine Glucose NEGATIVE Plasma/Serum Ethyl Alc 05/31/19 05/31/19 05/31/19 06:32 06:32 06:32 WBC 9.39 RBC 3.56 L Hgb 12.0 L D Hct 33.8 L MCV 94.9 MCH 33.7 H MCHC 35.5 RDW Std Deviation 12.2 Plt Count 147 MPV 10.8 H Immature Gran % (Auto) 0.5 Neut % (Auto) 77.1 H Lymph % (Auto) 10.9 L Hardy % (Auto) 10.6 H Eos % (Auto) 0.7 Baso % (Auto) 0.2 Immature Gran # (Auto) 0.05 H Neut # (Auto) 7.23 H Lymph # (Auto) 1.02 L Hardy # (Auto) 1.00 H Eos # (Auto) 0.07 Baso # (Auto) 0.02 PT INR PTT (Actin FS) Sodium 131 L Potassium 3.8 Chloride 93 L D Carbon Dioxide 18 L Anion Gap 20 BUN 81 H Creatinine 7.4 H Estimated GFR/1.73 m2 8 BUN/Creatinine Ratio 11 Glucose 101 Calculated Osmolality 287 Calcium 8.1 L D Magnesium Total Bilirubin AST ALT Alkaline Phosphatase Creatine Kinase 288 H Creatine Kinase Index CK-MB (CK-2) Troponin T 0.236 H Total Protein Albumin Globulin Albumin/Globulin Ratio Plasma Lactate Urine Source Urine Color Urine Clarity Urine pH Ur Specific [place] Urine Protein Urine Ketones Urine Blood Urine Nitrite Urine Bilirubin Urine Urobilinogen Urine Microscopic RBC Urine WBC Urine Microscopic WBC Ur Epithelial Cells Urine Crystals Urine Bacteria Urine Casts Urine Yeast Urine Glucose Plasma/Serum Ethyl Alc Orders Category Date Time Status Cardiac Monitoring DIRECTED Care 05/30/19 21:34 Active CHEST-1 VIEW [RAD] Stat Exams 05/30/19 21:[address] HEAD W/O CONTRAST [CT] Stat Exams 05/30/19 21:34 Completed ALCOHOL BLOOD Stat Lab 05/30/19 21:04 Completed BASIC METABOLIC PANEL [CHEM] Stat Lab 05/31/19 06:32 Results BLOOD CULTURE [BLDCUL] Stat Lab 05/31/19 00:29 Ordered CBC WITH DIFF [HEME] Stat Lab 05/30/19 21:04 Completed CBC WITH DIFF [HEME] Stat Lab 05/31/19 06:32 Completed CK PROFILE [SP CHEM] Stat Lab 05/30/19 21:04 Completed CK PROFILE [SP CHEM] Stat Lab 05/31/19 06:32 Results COMPREHENSIVE METABOLIC PANEL [CHEM] Stat Lab 05/30/19 21:04 Completed Cardiac Profile [CK PROFILE] [SP CHEM] Stat Lab 05/31/19 01:05 Completed LACTATE, PLASMA [CHEM] Stat Lab 05/31/19 00:30 Completed MAGNESIUM [CHEM] Stat Lab 05/30/19 21:04 Completed PROTIME WITH INR [COAG] Stat Lab 05/30/19 21:04 Completed PTT [COAG] Stat Lab 05/30/19 21:04 Completed TROPONIN T Stat Lab 05/30/19 21:04 Completed TROPONIN T Stat Lab 05/31/19 01:05 Completed TROPONIN T Stat Lab 05/31/19 06:[address] W/POSS RFLX CULT [URINALYSIS] Stat Lab 05/31/19 02:41 Completed URINE CULTURE [RM] Routine Lab 05/31/19 03:28 Ordered 0.9% Sodium Chloride Inj [Ns] 1,000 ml Med 05/30/19 21:03 Discontinued .ROUTE As directed 0.9% Sodium Chloride Inj [Ns] 1,000 ml Med 05/30/19 22:13 Discontinued IV 150 mls/hr 0.9% Sodium Chloride Inj [Ns] 1,000 ml Med 05/31/19 05:22 Active IV 150 mls/hr 0.9% Sodium Chloride Inj [Ns] 1,000 ml Med 05/30/19 21:17 Discontinued IV 999 mls/hr 0.9% Sodium Chloride Inj [Ns] 1,000 ml Med 05/30/19 22:12 Discontinued IV 999 mls/hr 0.9% Sodium Chloride Inj [Ns] 1,000 ml Med 05/31/19 00:42 Discontinued IV 999 mls/hr 0.9% Sodium Chloride Inj [Ns] 1,000 ml Med 05/31/19 02:32 Discontinued IV 999 mls/hr 0.9% Sodium Chloride Inj [Ns] 100 ml Med 05/30/19 22:15 Discontinued Diltiazem [Cardizem] 125 mg IV As Directed mls/hr Amiodarone [Cordarone] Med 05/31/19 02:33 Discontinued 150 mg IV NOW ONE Dextrose 5%-0.45% NaCl Inj [D5 1/2 Ns] 250 ml Med 05/31/19 03:15 Active Norepinephrine [Levophed] 8 mg IV As Directed mls/hr Dextrose 5%-0.45% NaCl Inj [D5 1/2 Ns] 500 ml Med 05/31/19 03:19 Discontinued .ROUTE As directed Diltiazem 125 mg/D5w [Cardizem 125 mg/D5w] Med 05/30/19 22:35 Discontinued 125 mg in 125 ml .ROUTE As directed Diltiazem 125 mg/D5w [Cardizem 125 mg/D5w] Med 05/30/19 22:55 Active 125 mg in 125 ml IV As Directed mls/hr Diltiazem [Cardizem] Med 05/30/19 21:17 Discontinued 10 mg IV NOW ONE Diltiazem [Cardizem] Med 05/30/19 22:12 Discontinued 10 mg IV NOW ONE Diltiazem [Cardizem] Med 05/30/19 21:06 Discontinued 25 mg .ROUTE .STK-MED ONE Norepinephrine [Levophed] Med 05/31/19 03:17 Discontinued 8 mg .ROUTE .STK-MED ONE EKG [EKG] Stat Ther 05/30/19 21:32 Draft EKG [EKG] Stat Ther 05/30/19 23:08 Draft EKG [EKG] Stat Ther 05/31/19 07:28 Ordered Fel that elevated CK, Troponin are due to the tachyarythmia and renal failure, not ischemia Result Diagrams: 05/31/19 06:32 05/31/19 06:32 - REASSESSMENT Reassessment #1 Time Reassessed: 22:15 (HR has increased again, BP dropped again. Pt has known EF of 20% per mom) Reassessment #2 Time Reassessed: 01:12 (over 2 liter IVF in, says does not feel urge to void, suggesting severe volume depletion) Reassessment #3 Time Reassessed: 05:30 (feels better. Lungs are clear to ascultation. have begun weaning Levophed) Status: improving - EKG 1 Time of EKG reading by physician:: 21:33 EKG Read and Signed by:: Ever Magaña EKG Interpretation (*Must complete 3 of following elements*): Abnormal Rate: 163 Rhythm: Wide QRS tachycardia [place]: right QRS: LVH (w/QRS widening) ST Wave: normal 2 Time of EKG reading by physician:: 23:32 EKG Read and Signed by:: Ever Magaña EKG Interpretation (*Must complete 3 of following elements*): Abnormal Rate: 104 Rhythm: A flutter w/ rvr [place]: normal QRS: LBB UT Interval: normal ST Wave: normal - XRAY 1 XRAY Study: Chest Impression: Normal (Impression: MV in place and no infiltrates) - CT/MRI 1 CT Study: Head Impression: Normal, See EMR Report (Impression: No acute intracranial findings.) - CONSULTS/PCP/HOSPITALIST Notification #1 *Consult/PCP/Hospitalist*: Dr. Voss/[facility] hospitalist Time Discussed: 01:17 Consult Disposition: Admit (Dr. Voss accepts pt but no ICU beds at [facility], will stay at [place] until morning.) - CHANGE OF SHIFT REPORT (ED Provider) 1 Report Given and Care Transferred to:: Cash Time of Transfer: 07:00 Items Pending: Other ([place] [facility] [place]ure - Departure Date of Disposition Decision: 05/30/19 Time of Disposition Decision: 22:30 DIAGNOSIS: New onset seizure Hypotension Qualifiers: Hypotension type: unspecified hypotension type Qualified Code(s): I95.9 - Hypotension, unspecified Arrhythmia Qualifiers: Arrhythmia type: other cardiac arrhythmia Qualified Code(s): I49.8 - Other specified cardiac arrhythmias Acute kidney failure Qualifiers: Acute renal failure type: unspecified Qualified Code(s): N17.9 - Acute kidney failure, unspecified Disposition: ADMITTED INPATIENT 09 Certified Medical Emergency: Emergent Condition: Fair Referrals and Follow-Ups: None,PCP [Primary Care Provider] - - Critical Care Note This patient required my direct & personal management of CC.: Yes Total Time (mins): 60 Critical Care Statement: This patient required my direct personal management to treat or rule out processes, the absence of which, could potentiallly result in sudden, clinically significant life or limb threatening deterioration. Attestation - Physician/ LATOYA Attestation Patient care was provided by Advanced Practice Provider:: No The physician spent face to face time with patient:: Yes Advanced Practice Provider documentation review:: Supervising physician onsite and consulted in the evaluation and care of this patient. The physician did have a face to face encounter with the patient. - NIH Stroke Scale NIH Type: Initial Evaluation Level of Consciousness: 0-Alert LOC Questions (ask month and age): 0-Answers Both Correctly LOC Commands (ask to open & close eyes;make a fist, let go): 0-Obeys Both Correctly Best Gaze (horizontal eye movement): 0-Normal Visual (use finger movement, counting or visual threat): 0-No Visual Loss Facial Palsy (show teeth or raise eyebrows & close eyes tght: 0-Symmetrical Movement Motor Function-left arm: 0-Normal Motor Function-right arm: 0-Normal Motor Function-left le-Normal Motor Function-right le-Normal Limb Ataxia([id number], or heel to roman): 0-No Ataxia Sensory(pin prick to face,arms,trunk,legs-compare side/side): 0-No Ataxia Best Language(name item/read sentence.Ex-Down to Earth): 0-No Aphasia Dysarthria(Pt read words or say words Ex.Mama,Tip-Top,Thanks: 0-Normal Articulation This chart was documented by the indicated scribe, (Juliann Whitlock, Scribe) and accurately reflects the services I performed and decisions made by me, Ever Magaña MD, as attested by the provider's signature.
--- NOTE | 2019-05-31 08:40 | EKG Report ---
Test Performed on : 05/31/2019 08:21:50 AM Test Reason : CP Blood Pressure : / mmHG Vent. Rate : 103 BPM Atrial Rate : 357 BPM P-R Int : 000 ms QRS Dur : 160 ms QT Int : 418 ms P-R-T Axes : 094 068 150 degrees QTc Int : 547 ms Atrial flutter. with variable AV block. with premature ventricular or aberrantly conducted complexes. Left bundle branch block Abnormal ECG When compared with ECG of 30-MAY-2019 23:26, (Unconfirmed) Previous ECG has undetermined rhythm, needs review Unconfirmed Result
[2019-05-31] MEDS ORDERED: CORDARONE 360 MG/D5W 360 MG/200 ML IV.SOLN IV ONE (12:50)
--- NOTE | 2019-05-31 13:45 | Diag Imaging Result Doc PS360 ---
EXAM: ABDOMEN FLAT/UPRIGHT INDICATION: Evaluate for bowel obstruction/free air TECHNIQUE: 2 views COMPARISON: None. FINDINGS: There is mild gaseous distention of the stomach. There is patchy stool throughout the colon. There is no obstructive bowel pattern. There is no evidence of large volume free abdominal gas. There is no evidence of organomegaly. IMPRESSION: Mild nonspecific gaseous distention of the stomach. No evidence of bowel obstruction. Electronically signed by Esteban Whitlock 05/31/2019 1:43 PM
[2019-05-31] MEDS: COREG PO SCH ×2 (14:28→20:13)
[2019-05-31 14:43] LABS: URINE SOURCE CATH
[2019-05-31 14:50] LABS: BILIRUBIN URINE NEGATIVE (NEGATIVE); BLOOD URINE TRACE (NEGATIVE); COLOR STRAW; GLUCOSE URINE 100 mg/dL (NEGATIVE); KETONE URINE NEGATIVE (NEGATIVE); LEUKOCYTES URINE NEGATIVE (NEGATIVE); NITRITE URINE NEGATIVE (NEGATIVE); PROTEIN URINE NEGATIVE (NEGATIVE); SP GRAVITY URINE 1.009; TURBIDITY URINE CLEAR (CLEAR); UROBILINOGEN URINE NORMAL (NORMAL)
[2019-05-31 14:51] LABS: UR EPITHELIAL CELLS <10 /HPF (<10); URINE BACTERIA NEGATIVE /HPF; URINE RBC <10 /HPF (<10); URINE WBC <10 /HPF (<10)
--- NOTE | 2019-05-31 15:00 | EKG Report ---
Test Performed on : 05/31/2019 12:52:58 PM Test Reason : Follow up rhythm Blood Pressure : / mmHG Vent. Rate : 087 BPM Atrial Rate : 036 BPM P-R Int : 000 ms QRS Dur : 156 ms QT Int : 452 ms P-R-T Axes : 000 019 170 degrees QTc Int : 543 ms Atrial fibrillation. with frequent ventricular-paced complexes and with premature ventricular or aber rantly conducted complexes. Left bundle branch block Abnormal ECG When compared with ECG of May 31, 2019- Frequent ventricular-paced complexes are now present Confirmed by Sp Narayanan MD ([id number]) on 06/02/2019 12:25:11 PM
[2019-05-31 15:03] LABS: UR PROT RANDOM 7.1 mg/dL
[2019-05-31] MEDS ORDERED: ATIVAN IV PRN (15:13)
--- NOTE | 2019-05-31 16:34 | Diag Imaging Result Doc PS360 ---
EXAM: US RENAL 2 (RETROPER) COMPLETE INDICATION: decreased renal function TECHNIQUE: COMPARISON: None. FINDINGS: The kidneys are normal in echotexture with no discrete renal mass or hydronephrosis. The right kidney measures 10.7 cm and the left kidney measures 10.1 cm in the greatest sagittal axes. Both renal cortices measure up to 1 cm in thickness. The urinary bladder is grossly unremarkable. IMPRESSION: Unremarkable renal ultrasound. Electronically signed by Esteban Whitlock 05/31/2019 4:32 PM
[2019-05-31] MEDS ORDERED: CORDARONE 540 MG in D5W 289.2 ML IV ONE (18:50)
--- NOTE | 2019-05-31 20:00 | PROGRESS NOTE ---
DATE: 05/31/2019 INTERVAL HISTORY: He was transferred from [facility] and admitted to [facility] for abnormal heart rhythm, acute kidney injury. SUBJECTIVE: He is denying any chest pain or shortness of breath. He states he has had poor p.o. intake, vomiting since almost a week and he was not able to eat by mouth. He denies having feelings of any shock. Currently, he states he has been though taking his lisinopril, torsemide, spironolactone and Coreg. He is on norepinephrine. We have been titrating it down. VITAL SIGNS: Currently temperature of 98.1 degrees, pulse is irregularly irregular 112, respiratory rate 19, blood pressure 108/65. He is saturating 97% on room air. PHYSICAL EXAMINATION: General: Does not appear in any acute distress. HEENT: Oral cavity is moist. Lungs: Air entry bilaterally equal. No wheeze, rhonchi, crackles. Cardiovascular: His S1 is normal, S2 is mechanical. No murmur, rub, or gallop. Irregularly irregular rhythm. He has a midline sternotomy scar. Abdomen: Soft, nontender. No lower extremity edema. He is making urine. LABORATORY DATA: Suggestive of mild leukocytosis, normocytic anemia, normal platelet count, hyponatremia hypochloremia, improving BUN and creatinine. He continues to have elevated troponins. MICROBIOLOGY: No new data. Blood culture, urine culture are in lab. ASSESSMENT AND PLAN: 1. Acute kidney injury, possibly due to volume depletion and use of lisinopril, spironolactone, torsemide. Nephrology on board. His bicarbonate is 18. 2. Intermittent wide complex and intermittent paced rhythm on athletic monitor. The patient denies feelings of getting shocks. In 2017, he had left bundle branch block better which could potentially explain his arrhythmia. This could be atrial fibrillation as well. I will stop intravenous diltiazem and start him on intravenous amiodarone considering his low ejection fraction. I will follow up with potassium and magnesium closely. 3. History of coronary artery disease, requiring stent in 2013 after myocardial infarction, chronic systolic congestive heart failure with ejection fraction of 20% status post AICD. Continue to hold his diuretics. His troponins have been elevated in the setting of acute kidney injury. I will monitor them. 4. History of mechanical aortic valve. I will resume his warfarin and monitor his INR. 5. Seizure. Witnessed seizure like activity on admission by family. This could be in the setting of multiple metabolic derangements and acute kidney injury. He denies prior history of seizure. CT scan was unremarkable. Apparently, patient has had syncopal events multiple times since the last few days. I will continue to monitor him with seizure precaution and keep him on full liquid diet only. CRITICAL CARE: More than 30 minutes of critical care time was spent in taking care of this patient. Plan of care discussed with him. All of his questions been answered. cc: Edy Mcdaniel MD MTDD
[2019-05-31] MEDS: COUMADIN PO SCH (20:13)
--- NOTE | 2019-05-31 21:39 | PROGRESS NOTE ---
DATE: 05/31/2019 INTERVAL HISTORY: Mr. Peguero was at [facility] overnight and was transferred over to [facility]. He had presented to [facility] for a witnessed seizure by his mother, and in the emergency room, he was found to have wide-complex tachycardia, profound hypotension, and new-onset acute renal failure. Overnight, he was given multiple intravenous fluids, intravenous amiodarone, intravenous diltiazem, and was transferred over to [facility] on diltiazem drip, as well as norepinephrine drip. The patient complains of nausea, vomiting, poor p.o. intake, and inability to keep anything down for about 7 days' duration. He has also been having almost no urine output, frequent mechanical falls which sounds like syncope, events lasting for a few seconds, 3 to 4 times a day, since the last 3 or 4 days. Yesterday, his mother had requested him to come to the emergency room after he had another such syncopal episode, but he refused. After a few minutes again, he was transferring himself from dining chair to his couch, when he felt dizzy, fell down. According to mother, she has noticed seizure activity, so EMS was called and patient was brought to the emergency room. The patient also had postictal confusion and he does not remember that episode. Patient denies known history of acute kidney injury. He denies having felt any shocks from his AICD. He has been taking torsemide, lisinopril, and spironolactone over the last few days consistently, despite not being able to drink or eat anything. He denies urinary burning or frequency. PHYSICAL EXAMINATION: vitals: Temperature, afebrile, 97.1. Pulse 81, respiratory rate 18, blood pressure 112/79. He is saturating 99% on room air. General: Does not appear in any acute distress. Oral cavity is moist. Air entry bilaterally equal. No wheeze, rhonchi, crackles. S1, S2, irregularly irregular. He has mechanical S2. He has a left-sided AICD. No murmur, rub, or gallop. Abdomen is soft, tympanic to percussion, nontender. No hepatosplenomegaly. No lower extremity edema. He is alert and oriented x3. LABORATORY: Labs suggestive of mild leukocytosis, normocytic anemia, normal platelet count, hyponatremia, hypochloremia which is improving, improving BUN and creatinine, flat trend of troponins. IMAGING: Chest x-ray on admission was unremarkable. Head CT was unremarkable. Abdominal x-ray is also unremarkable. EKG in [facility] had wide QRS tachycardia rhythm. Subsequent EKG had atrial fibrillation or flutter with variable AV block and baseline left bundle-branch block. ASSESSMENT: 1. Acute kidney injury, possibly due to profound volume depletion due to poor oral intake, nausea and vomiting, with contributions from lisinopril, spironolactone, and torsemide. 2. Wide-complex tachycardia with hypotension, which could be atrial fibrillation or flutter with baseline left bundle-branch block versus other form of cardiac arrhythmia. 3. Profound volume depletion. 4. History of coronary artery disease, status post myocardial infarction and stenting in 2013. 5. History of mechanical aortic valve, on chronic Coumadin therapy. 6. History of congestive heart failure with reduced ejection fraction of 25%, status post automatic implantable cardioverter defibrillator. PLAN: Keep patient on seizure precautions. Continue him on norepinephrine drip to maintain MAP more than 65 mmHg. Cardiology has been consulted and the patient's intravenous diltiazem has been changed to intravenous amiodarone considering his low ejection fraction. Continue him on warfarin for mechanical aortic valve. DISPOSITION: The patient's condition is critical. TIME SPENT: More than 30 minutes of critical care time was spent taking care of this patient. All of his questions have been satisfactorily answered. cc: Edy Mcdaniel MD
[2019-06-01] MEDS: LEVOPHED 8 MG in D5 1/2 NS 250 ML IV SCH (02:01)
[2019-06-01 05:14] LABS: HEMOGLOBIN 11.7 g/dL (14.0-18.0); MCH 34.5 PG (27-31); MCHC 35.5 g/dL (33-37); MCV 97.3 FL (81-99); MPV 11.4 FL (7.4-10.4); RBC 3.39 XMIL (4.7-6.1); RDW 12.2 % (11.5-14.5); WBC 6.41 X1000 (4.8-10.8)
[2019-06-01 05:22] LABS: INR 1.85; PROTIME 22.7 Seconds (11.0-16.0)
[2019-06-01 05:58] LABS: ALBUMIN 3.7 g/dL (3.5-5.0); CALCIUM 8.9 mg/dL (8.8-10.2); CREATININE 2.6 mg/dL (0.7-1.2); PHOSPHORUS 3.4 mg/dL (2.7-4.5); POTASSIUM 3.8 mmol/L (3.5-5.1)
[2019-06-01] MEDS ORDERED: BENADRYL IV SCH (08:45)
--- NOTE | 2019-06-01 08:58 | CARDIOLOGY CONSULTATION ---
DATE: 05/31/2019 Cardiology was consulted. Atrial fibrillation. Acute tubular necrosis. Mr. Nima Contreras is a 44-year-old, Afro-[place] gentleman who has an extensive cardiac history. Has had mechanical [employer]'s aortic valve. Myocardial infarction in the past, severe LV dysfunction. Had been doing well however for the last 3 to 4 days has been complaining of having had recurrent nausea and vomiting and has had no oral intake for the last 3 days. He however has been taking his medications. Denies chest pain. Failed felt very weak. There is no mikel syncopal episode but he was disoriented. Patient came to the emergency room. He had a CT scan of his head done. Lab work was done which revealed a sodium 128, potassium 4.2, BUN of 86, creatinine was 11. His previous renal function in 2018 was normal. He had abnormal cardiac enzymes with a troponin of 0.137, 0.236, CK-MB of 8.5, 8.8 and 10.8 with a CK of 325, 260 and 288 respectively. His H and H revealed a WBC of 12, hematocrit 38.6, platelet count of 182,000, hemoglobin 14.3. Chest x-ray revealed no acute disease. Patient was admitted to ICU initially. He given his atrial fibrillation was started on IV Cardizem. He had received a bolus of amiodarone for his atrial fibrillation with rapid ventricular rate. Telemetry electrocardiogram again revealed atrial flutter. The patient was given IV fluids. Symptomatically, he feels much better. REVIEW OF SYSTEMS: Fourteen point review of system was done. GI System: As above. Cardiovascular System: Denies chest pain. Complaints of generalized weakness. System: There is no dysuria. He had decreased urine output. Central nervous system: No focal weakness to suggest a CVA or TIA. PAST MEDICAL HISTORY: 1. Myocardial infarction 08/03, thrombotic embolization of the left anterior descending artery. At that time he had not been taking any Coumadin regularly. He underwent thrombectomy and bare metal stent to the left anterior descending artery and circumflex artery 2. Baseline left bundle branch block. 3. History of systolic heart failure, severe LV dysfunction, ejection fraction of 20 to 25 percent. 4. Status post AICD placement. 5. [facility] [facility]'s mechanical aortic valve placed on 2011 at [facility]. 6. Coumadin therapy. 7. Has also had ascending aorta aneurysm. SOCIAL HISTORY: Currently the patient drinks occasionally, history of alcohol abuse. HOME MEDICATIONS: Include Coumadin, lisinopril, spironolactone 25, Coreg 12.5 b.i.d. and lisinopril 5 mg a day. ALLERGIES: He is not known to be allergic to any medication. PHYSICAL EXAMINATION: On examination, blood pressure was 112/74. Jugular venous pressure was normal. 1st and 2nd heart mechanical valve sounds were noted. Respiratory: Normal air entry. There is no crepitations or rhonchi. Abdomen: Was soft, nontender. There was no guarding or rigidity. Bowel sounds were heard. Central nervous system: Alert, moving all 4 extremities. There was no pedal edema. ASSESSMENT AND PLAN: 1. Mr. Nima Contreras is a 44-year-old, gentleman who has history of had myocardial infarction in the past, mechanical aortic valve replacement in 2011, baseline left bundle branch block, on Coumadin therapy, AICD placement, who comes with complaints of having nausea and vomiting, poor intake for the last 3 to 4 days with altered mental status as well. The patient was noted to be in atrial fibrillation. Patient has severe LV dysfunction. I will discontinue the Cardizem and put him on amiodarone per standard protocol. 2. We will get an echocardiogram to assess cardiac and valvular function. 3. PT/INR is therapeutic however given the fact that he is going to be on Coumadin, we will check regular PT/INR. 4. He has had significant nausea, vomiting and poor intake. He has acute tubular necrosis, secondary to dehydration. He has been given IV fluids. We will follow with daily BMP. 5. In the interim recommend hold his lisinopril and his spironolactone until his kidney function stabilizes. Thank you for the consult. cc: Philip Stephenson MD
[2019-06-01] MEDS ORDERED: COREG PO SCH (09:00)
--- NOTE | 2019-06-01 09:23 | NEPHROLOGY CONSULTATION ---
DATE: 06/01/2019 REASON FOR ADMISSION: 1. Question of seizure. 2. Acute kidney injury. 3. Oliguria. 4. Hypotension. REASON FOR CONSULTATION: Acute kidney injury, assist with management. CONSULTING PHYSICIAN: César Voss MD HISTORY OF PRESENT ILLNESS: This is a 44-year-old gentleman with a past medical history primarily cardiac in nature. Patient has had a mechanical valve placed about 5 years ago. He also has a defibrillator pacemaker secondary to irregular heart rate. The patient states that for the last 4- 5 days he has had nausea, vomiting, and been unable to eat. He has also had significantly decreased to no urine output for most of that time. The patient states that he has been continuing to try to take his home medications even with these above symptoms. The patient came to the emergency room. His creatinine was 11. He was felt to be severely dehydrated. He was given multiple boluses of normal saline. The creatinine has improved since 1st admit down to 7.4, today. Patient states that he has started making urine this afternoon. PAST MEDICAL HISTORY: Valve replacement, CHF, hypertension. PAST SURGICAL HISTORY: Mechanical valve replacement and a defibrillator placement. ALLERGIES: No known drug allergies. HOME MEDICATIONS: Listed as Coumadin, Prinivil, spironolactone and Coreg. FAMILY HISTORY: Noncontributory. SOCIAL HISTORY: Patient reports that he does drink beer frequently. No illicit drugs or tobacco. REVIEW OF SYSTEMS: Again questionable seizure activity. Confused, nausea, vomiting, decreased urine output. VITAL SIGNS: Temperature 98.4 degrees, pulse 84, respiratory rate 16, blood pressure 84/55 and 94/53. INTAKE/OUTPUT: It appears that he has had approximately 5 L fluid in since admit to the hospital. He has had urine output if 1.2 L today. IMAGING STUDIES: Renal ultrasound pending. PHYSICAL EXAMINATION: General: Middle-aged gentleman resting in bed. He is awake and alert. He does not appear in acute distress. HEENT: Normocephalic, atraumatic. His conjunctivae are pale. His lips are dry. His tongue is moist. Neck: Supple. There is no JVD. Cardiovascular: Irregularly irregular rhythm. Pulmonary: He is clear bilaterally. Abdomen: Soft, positive bowel sounds. Genitourinary: He is voiding dark urine. Extremities: No clubbing, cyanosis, or edema. Integumentary: Skin is warm and dry. Neurologic: Grossly nonfocal. ASSESSMENT AND PLAN: 1. Acute kidney injury, likely acute tubular necrosis secondary to concurrent ACEI use. The patient has had significant improvement over the last 24 hours with fluid resuscitation. As long as he can tolerate it, we will continue his IV fluids at least overnight until tomorrow and recheck labs in the morning. 2. Question of seizure followed by primary. 3. Hypotension. The patient was initially on Levophed in the emergency room. His blood pressures come up into the 90s and now he is on pressor support. This may also contribute to #1. Dictated by ALYSIA Toscano for Lino Prakash MD cc: Lino Prakash MD
[2019-06-01] MEDS: SOLU-MEDROL IV SCH ×3 (09:26→23:58)
[2019-06-01] MEDS: BENADRYL IV PRN ×2 (09:27→23:58)
--- NOTE | 2019-06-01 11:45 | HISTORY AND PHYSICAL ---
CHIEF COMPLAINT: Seizure. HISTORY OF PRESENT ILLNESS: Patient is a 44-year-old male who presented to the ER via ambulance service after having had a seizure. Patient's mother states that he went to get up from the couch, fell backwards, and started jerking his arms and legs. He appeared to be confused afterward. Has not really had an appetite for the past 4 or 5 days. Has had some nausea, vomiting. Patient notes his blood pressure was low at home. States he has had a mechanical valve replaced. Does have a known history of congestive heart failure. ALLERGIES: No known drug allergies. MEDICATIONS: 1. Coumadin 4 mg at bedtime. 2. Coreg 3. Spironolactone. REVIEW OF SYSTEMS: Patient currently is awake, alert. He is very pleasant. He is in no distress. Does note that he has had a poor appetite. He has had nausea, vomiting, decreased oral intake, but has been taking his medications. States he has had low-grade fevers. He has felt hot, but denies any knowledge of true fevers. denies chills. Denies cough, congestion, shortness of breath. Denies dysuria, frequency, urgency. Denies constipation, melena, hematochezia. Denies skin rashes, weight loss, or weight gain. PAST MEDICAL HISTORY: 1. Congestive heart failure. 2. Hypertension. 3. History of mechanical valve replacement. 4. Known coronary artery disease, status post CABG. FAMILY HISTORY: Noncontributory. SOCIAL HISTORY: Patient does not smoke or drink. Does smoke less than half pack a day. Drinks alcohol occasionally. Does not quantify how much. Denies any illicit substance use. PHYSICAL EXAMINATION: VITAL SIGNS: Reviewed. Temperature 97 degrees, pulse 102 to 85, respiratory rate 20, BP 79/50 initially, currently 133/70, saturation 98% on room air. GENERAL: Patient is awake, alert. He is in no current respiratory distress. He is pleasant to talk with. He appears much more oriented and alert than initial presentation. HEENT: Normocephalic. Neck is supple. He has poor dentition. PRASANTH. CARDIOVASCULAR: Regular rate, regular rhythm. CHEST: Clear and nonlabored. No wheezing. ABDOMEN: Soft, nondistended, nontender. EXTREMITIES: Moves all extremities. Good pulses. SKIN: Warm, dry. No rashes. NEUROLOGIC: He is awake, alert, oriented. Cranial nerves 2 through 12 grossly intact. ASSESSMENT: 1. Hypotension, resolved. 2. Volume depletion. 3. Leukocytosis. 4. Elevated troponin at 0.2. 5. Hyponatremia at 128. 6. Acute renal failure, improving. Creatinine was 11 on admission, currently down to 7.4 with intravenous fluids. 7. New onset seizure of undetermined origin. PLAN: 1. We will continue patient in the hospital. 2. Intravenous fluids. 3. Most likely we will need to start bicarbonate as well if he does not improve with fluids, although he has had a good improvement from 11 down to 7. 4. We will continue to follow, treat symptomatically. 5. We will follow him for his seizure. Will not start on medications currently. cc: Ronnie Donis MD
[2019-06-01] MEDS: COREG PO SCH ×2 (12:09→21:19)
[2019-06-01] MEDS ORDERED: LOPRESSOR IV PRN (12:36)
[2019-06-01] MEDS ORDERED: MAGNESIUM SULFATE 2 GM/S.W.I. 2 GM/50 ML IVPB IV ONE (12:38)
--- NOTE | 2019-06-01 14:07 | CARDIOLOGY PROGRESS NOTE ---
DATE: 06/01/2019 SUBJECTIVE: Mr. Peguero reports he feels okay. He has had some rapid heart rates overnight but denies any palpitations. PHYSICAL EXAMINATION: Vital Signs: Afebrile. Heart rates are in the 100s to 120s this morning. Blood pressure 106/60. General: He is in no acute distress. Cardiovascular: He sounds to be in irregularly irregular mildly tachycardic rhythm. He has no murmurs. He has a mechanical S1, no S3. He has no lower extremity edema. Chest: Clear bilaterally. No increased work of breathing. Abdomen: Soft and nontender. PERTINENT DATA: His white count is 6.4, hematocrit 33, platelet count is 119. His INR is 1.8. Sodium 133, potassium is 3.8, BUN is 61, creatinine 2.6 which is down from 11 on admission. His magnesium level is 1.4. ASSESSMENT: Mr. Peguero is a 44-year-old gentleman with a mechanical mitral valve and atrial fibrillation. He had acute kidney injury likely secondary to volume depletion. PLAN: His creatinine is improving. He still remains on a low-dose of pressor, which is driving his heart rate. He did not tolerate the amiodarone given that he developed a significant rash with it. This has been stopped. I will place an order for IV Lopressor to try to rate control him. If his magnesium has not been repleted, we will order some repletion. cc: Kp Amador MD
--- NOTE | 2019-06-01 14:15 | PROGRESS NOTE ---
DATE: 06/01/2019 SUBJECTIVE: He came to the hospital because he was dehydrated and found to be on CELIA and also have atrial fibrillation with rapid ventricular rate Otherwise he is feeling fine. OBJECTIVE: Vitals: Temp. 97.8, heart rate 86, respiratory rate 18, blood pressure 106/68, O2 saturation 99% on room air. General Examination: This is a chronically ill- appearing, 44-year- old male lying in bed in no acute distress. HEENT: Head is normocephalic, atraumatic. Neck: No JVD noted. No carotid bruits. No lymphadenopathy. No thyromegaly. Cardiovascular: S1, S2 heard. Irregularly irregular. No murmurs, gallops, or rubs. Mechanical S2 noted. He has a left-sided AICD. No murmurs, gallops, or rubs noted. Respiratory: Clear bilaterally to auscultation. No work of breathing or using accessory muscles. Abdomen is soft. A little bit tympanic to percussion but nontender to palpation. No signs of peritoneal irritation. No organomegaly noted. Extremities: No clubbing, cyanosis, or edema. Peripheral pulses present in both legs. Neurological: Patient is alert and oriented x3. Moves 4 extremities. LABORATORY DATA: White cell count 6.41, hemoglobin 11.7, hematocrit 33.0, platelets 119,000 with BP that reveals creatinine 2.6, sodium 133. BUN 61. ASSESSMENT/PLAN: 1. Acute kidney injury, most likely secondary to profound bone depletion. Patient's renal function is definitely getting much better. The patient has been on lisinopril, spironolactone, torsemide. Those have been stopped. The patient is having a good improvement. We will follow recommendations from Nephrology. 2. Atrial fibrillation with rapid ventricular response. Patient has been on amiodarone drip but apparently has developed a rash secondary to this medication so that was stopped. I talked to him about increasing the doses of Coreg from 12.5 to 25 mg p.o. daily but he said that he had syncope with high doses. At this point, I prefer to have an opinion from Cardiology regarding management of this condition. 3. Profound volume depletion. Getting better with IV fluids. 4. History of coronary artery disease status post myocardial infarction and stenting in 2013, that condition is stable. Patient is not having chest pain. 5. History of mechanical aortic valve on chronic Coumadin therapy. We will continue with the warfarin. 6. History of congestive heart failure with reduced ejection fraction of 25% status post AICD. Stable cardiology following. 7. Hypotension. The patient continues to be on Levophed. 8. Disposition: I think if this patient's renal function continues to improve and we are able to wean off from vasopressors, that this patient can be discharged during the next 24, but most likely 48 hours. cc: Serjio Shultz MD MTDD
[2019-06-01] MEDS: COUMADIN PO SCH (21:19)
--- NOTE | 2019-06-01 22:14 | NEPHROLOGY PROGRESS NOTE ---
DATE: 06/01/2019 SUBJECTIVE: Patient is sitting up in bed. He is feeling much better. He has been able to tolerate fluids without difficulty. He has had no vomiting. OBJECTIVE: Vital Signs: Temperature 97.2 degrees, pulse 80, respiratory rate 16, blood pressure 99/70. Intake 2.8 L, output 2.6 L. General: Middle-aged gentleman sitting up in bed. Awake and alert, in no acute distress. HEENT: Normocephalic, atraumatic. PRASANTH. Conjunctivae pink. Neck: Supple without JVD. Cardiovascular: Irregularly irregular rhythm. Defibrillator pacemaker noted. Pulmonary: Clear bilaterally. Abdomen: Soft. Positive bowel sounds. Genitourinary: Voiding clear yellow urine. Extremities: No clubbing, cyanosis, or edema. Integumentary: Skin is warm and dry. LABORATORY DATA: WBC of 6.4, hemoglobin 11.6. Sodium 133, potassium 3.8, CO2 of 23, creatinine 2.6 (7.4, 11.0). ASSESSMENT AND PLAN: 1. Acute kidney injury, likely secondary to intravascular volume depletion along with concurrent GISELLE inhibitor use. The patient has had rapid improvement in renal function. His baseline creatinine is 0.8, according to old records. I anticipate he will be back down to that by tomorrow. As long as the patient is tolerating IV fluids, would continue that for hydration purposes. Patient is eating. 2. Hypotension, improving. 3. Question of seizure. Followed by primary. Dictated by ALYSIA Toscano for Lino Prakash MD cc: Lino Prakash MD
[2019-06-02] MEDS: ATIVAN IV ONE ×2 (04:24→07:21)
[2019-06-02] MEDS: COREG PO SCH (08:51)
[2019-06-02] MEDS: SOLU-MEDROL IV SCH (08:51)
[2019-06-02 09:02] VITALS: BP 119/82
[2019-06-02 09:13] LABS: HEMOGLOBIN 11.8 g/dL (14.0-18.0); IMM GRAN# 0.02 X1000 (0.0-0.04); IMM GRAN% 0.2 % (0.0-0.5); LYMPH% 3.3 % (20.5-51.1); MCH 34.1 PG (27-31); MCHC 34.7 g/dL (33-37); MCV 98.3 FL (81-99); MONO# 0.33 X1000 (0.11-0.59); MONO% 3.7 % (1.7-9.3); MPV 11.2 FL (7.4-10.4); NEUT# 8.38 X1000 (1.4-6.5); NEUT% 92.8 % (42.2-75.2); PLT 119 X1000 (130-400); RBC 3.46 XMIL (4.7-6.1); RDW 12.3 % (11.5-14.5); WBC 9.03 X1000 (4.8-10.8)
[2019-06-02 09:20] LABS: ALBUMIN 3.8 g/dL (3.5-5.0); CALCIUM 9.1 mg/dL (8.8-10.2); CREATININE 1.4 mg/dL (0.7-1.2); PHOSPHORUS 1.9 mg/dL (2.7-4.5); POTASSIUM 4.5 mmol/L (3.5-5.1)
[2019-06-02 10:04] LABS: BANDS 2 % (0-1); LYMPHS 3 % (21-51); MONO 2 % (1-9); SEGS 93 % (42-75)
[2019-06-02 10:05] LABS: ANISOCYTOSIS 1+; INR 1.54; POIKILOCYTOSIS 1+; PROTIME 19.7 Seconds (11.0-16.0); TARGET CELLS 1+
--- NOTE | 2019-06-02 16:18 | NEPHROLOGY PROGRESS NOTE ---
DATE: 06/02/2019 SUBJECTIVE: The patient became extremely agitated overnight, demanding to leave. Have discharge orders on the chart and he is waiting for rounds to leave. OBJECTIVE: Vital Signs: Temperature 98.1, pulse 101, respiratory rate 19, blood pressure 119/82. Intake 2.6 L. Output 3.7 L voided. Physical Examination: General: Middle-aged gentleman sitting up on the side of the bed. He is awake and alert. He is in no acute distress. He is cooperative with me. HEENT: Was normocephalic, atraumatic. His oral mucosa appears moist. His dentition is fair. Neck is supple. There is no JVD noted. Cardiovascular: Irregularly irregular. Pulmonary: He has no increased work of breathing. : Voiding. Extremities: No edema. Integumentary: Skin was fair, warm, and dry. Neurological: He is calm and cooperative. Lab Data: Sodium 134, potassium 4.5, CO2 of 21, creatinine 1.4. ASSESSMENT AND PLAN: Acute kidney injury, likely in the setting of intravascular volume depletion and concurrent GISELLE inhibitor use. The patient had significant improvement daily. From a renal perspective, we are in agreement that he can be discharged to home and we will follow up with him as an outpatient within the next 2 to 3 weeks with a set of labs prior to his appointment to verify that his renal function has returned to normal. Dictated by ALYSIA Toscano for Lino Prakash MD cc: Lino Prakash MD
--- NOTE | 2019-06-02 21:41 | DISCHARGE SUMMARY ---
ADMISSION DATE: 05/31/2019 DISCHARGE DATE: 06/02/2019 DIAGNOSES: 1. Hypotension resolved. 2. Volume depletion resolved. 3. Acute kidney injury secondary to profound volume depletion. 4. Atrial fibrillation with rapid ventricular response [*]. 5. History of coronary artery disease having myocardial infarction in July 2014 undergoing thrombectomy and bare metal stent to left anterior descending and circ. 6. History of systolic heart failure with severe left ventricular dysfunction with ejection fraction of 20 to 25 percent. 7. Status post automated implantable cardioverter defibrillator. 8. [facility] mechanical aortic valve in 2011. 9. Ascending aortic aneurysm. 10. Chronic anticoagulation . DIAGNOSTICS: 1. Chest x-ray revealed no evidence of acute disease. 2. CT of the head revealed no visible acute intracranial abnormality. No hemorrhage or mass effect. 3. Renal ultrasound revealed unremarkable renal ultrasound. CONSULTATIONS: 1. Dr. Lino Prakash Nephrology. 2. Dr. Philip Stephenson cardiology. HOSPITAL COURSE: Mr. Peguero presented to the emergency room after having a seizure. He was found to be hypotensive initially he was placed on Levophed thankfully after rehydration this was able to be weaned off. He was found to have a admission creatinine of 11. He has no history of kidney disease. He was rehydrated and thankfully his creatinine is down to 1.4 today. Of note we did hold his GISELLE inhibitor during this time. He was evaluated by Nephrology who felt that his acute kidney injury was likely acute tubular necrosis secondary to concurrent GISELLE inhibitor and dehydration. He was started on amiodarone for his atrial fibrillation, RVR and he did not tolerate this given that he developed a significant rash, he was then given Lopressor and heart rates were in the 90 to low 100 range. We trended his electrolytes and repleted as appropriate. During the night last night the patient removed all his monitoring devices. He stepped on the ICU hallway. He began to yell and scream at the staff stated he was in a motel room. He was very uncooperative. He stated that he wanted his cigarettes and go on the balcony and smoke. He was ordered Ativan although he refused to allow to be given. After discussing with the multiple staff members through the night he did go back into his room after being given a cup of coffee and remote control so he can watch TV. He did have more than 1 episode of outburst during the night. This morning Dr. Castillo was at the patient's bedside, he attempted to talk to the patient about long-term at the bedside, the patient stated he was going home no matter what. Dr. Castillo attempted to talk about discharge plans followup and the patient would not listen. He kept stating I am going home no matter what. Dr. Castillo did discharge the patient and at 10:30 he was walked to the [facility] by nursing staff refusing to ride in a wheelchair at discharge. DISCHARGE PHYSICAL EXAM: Vital signs: Blood pressure is 119/82 with a heart rate of 100, respirations 19, temperature 98.9 degrees with room air saturations 98 to 100. Cardiovascular: Regular irregular rate and rhythm. S1 and S2 appreciated. Pulmonary: Breath sounds are clear. No increased work of breathing noted . Gastrointestinal: Abdomen soft, nontender, nondistended with bowel sounds in all 4 quadrants. Neurologic: He is agitated but he is alert and oriented. DISCHARGE MEDICATIONS: 1. Warfarin 4 mg p.o. at bedtime. 2. Spironolactone 25 mg p.o. daily. 3. Medrol Dosepak. 4. Prinivil 5 mg p.o. daily. 5. Coreg 12.5 p.o. b.i.d. FOLLOWUP: 1. 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 He needs to call in the morning to schedule an appointment. 2. [facility]. He needs to call in the morning to discuss his warfarin dose. 3. His primary care physician he needs to call the morning schedule an appointment to be followed up. He will need to have a BMP drawn to assess his renal function. 4. He was instructed to return to the emergency room for any syncope, dizziness, chest pain, palpitations, any shortness of breath, cough, fever, chills, temperature greater than 101, any nausea, vomiting, diarrhea, constipation, black or bloody vomitus or stools, any hematuria, dysuria, frequency, urgency or for any questions or concerns that he may have. 5. He was discharged home. Dictated by ALYSIA Andino for Serjio Shultz MD cc: Georgia Shultz MD
--- NOTE | 2019-06-03 08:15 | EKG Report ---
Test Performed on : 06/01/2019 04:08:35 AM Test Reason : Follow up heart rhythm Blood Pressure : / mmHG Vent. Rate : 086 BPM Atrial Rate : 089 BPM P-R Int : 000 ms QRS Dur : 220 ms QT Int : 524 ms P-R-T Axes : 000 248 066 degrees QTc Int : 627 ms Electronic ventricular pacemaker with frequent and consecutive premature ventricular complexes. and f usion complexes Abnormal ECG When compared with ECG of May 31, 2019- Electronic ventricular pacemaker has replaced atrial fibrillation Confirmed by Sp Narayanan MD ([id number]) on 06/04/2019 9:01:21 PM
== END 2019-06-02 10:30 | disposition home or self-care (01) | DRG 683 ==
LOC: P.ED 20:59 → EDIPHOLD 05-31 07:59 → SUATTDRO 05-31 07:59 → ICU 05-31 08:41
PROVIDERS: ATTEND Internal Medicine
CPT/HCPCS: 70450; 71010; 71045; 74019; 74020; 76770; 80048; 80053; 80069; 80307; 80320; 81001; 82055; 82550; 82553; 82570; 83605; 83735; 84156; 84300; 84484; 85025; 85027; 85610; 85730; 87040; 87088; 87205; 93005; 93010; A9270; G0480; G6040; J0282; J1200; J2060; J2930; J3475; J7030; J7060

== ENCOUNTER 2019-10-22 15:32 | Inpatient (IN) ==
--- NOTE | 2019-10-22 16:24 | EKG Report ---
Test Performed on : 10/22/2019 3:33:48 PM Test Reason : chest pain Blood Pressure : / mmHG Vent. Rate : 124 BPM Atrial Rate : 182 BPM P-R Int : 000 ms QRS Dur : 186 ms QT Int : 394 ms P-R-T Axes : 000 -40 104 degrees QTc Int : 566 ms Wide QRS tachycardia. Left axis deviation Left bundle branch block Abnormal ECG When compared with ECG of 01-JUN-2019 04:08, Wide QRS tachycardia. has replaced Electronic ventricular pacemaker Unconfirmed Result
[2019-10-22 17:53] LABS: BASO# 0.04 X1000 (0.0-0.2); BASO% 0.7 % (0.0-0.8); EOS# 0.16 X1000 (0.0-0.7); EOS% 2.8 % (0.0-10.0); HEMATOCRIT 39.8 % (42.0-52.0); HEMOGLOBIN 13.6 g/dL (14.0-18.0); IMM GRAN# 0.02 X1000 (0.0-0.04); IMM GRAN% 0.4 % (0.0-0.5); LYMPH# 1.46 X1000 (1.2-3.4); LYMPH% 25.9 % (20.5-51.1); MCH 34.3 PG (27-31); MCHC 34.2 g/dL (33-37); MCV 100.3 FL (81-99); MONO# 0.67 X1000 (0.11-0.59); MONO% 11.9 % (1.7-9.3); MPV 10.4 FL (7.4-10.4); NEUT# 3.29 X1000 (1.4-6.5); NEUT% 58.3 % (42.2-75.2); PLT 124 X1000 (130-400); RBC 3.97 XMIL (4.7-6.1); RDW 13.2 % (11.5-14.5); WBC 5.64 X1000 (4.8-10.8)
--- NOTE | 2019-10-22 17:57 | Diag Imaging Result Doc PS360 ---
EXAM: CHEST-PORTABLE 10/22/2019 HISTORY: chest pain TECHNIQUE: AP portable at 1740 COMMENT: There is no evidence of acute cardiac or pulmonary disease. Compared to 05/30/2019 there has been no significant change in the appearance of the chest considering differences in inspiration. IMPRESSION: No evidence of acute disease. Electronically signed by Ken Montero 10/22/2019 5:55 PM
[2019-10-22] MEDS ORDERED: M.V.I.-12 10 ML, FOLIC ACID 1 MG, MAGNESIUM SULFATE 1 GM, THIAMINE 100 MG in NS 1,000 ML IV ONE (18:09)
[2019-10-22] MEDS ORDERED: NS 1,000 ML IV ONE (18:09)
[2019-10-22 18:10] LABS: AGAP 18; ALB/GLOB RATIO 1.7; ALBUMIN 4.3 g/dL (3.5-5.0); ALKALINE PHOSPHATASE 84 U/L (32-122); BUN 13 mg/dL (8-22); CALCIUM 8.9 mg/dL (8.8-10.2); CHLORIDE 96 mmol/L (98-107); COSMO 273; CREATININE 0.9 mg/dL (0.7-1.2); ESTIMATED GFR > 60; GLUCOSE 117 mg/dL (70-104); GOT 99 U/L (10-34); GPT 67 U/L (10-44); LIPASE 63 U/L (13-60); POTASSIUM 4.4 mmol/L (3.5-5.1); SODIUM 136 mmol/L (136-145); TCO2 22 mmol/L (25-35); TOTAL BILIRUBIN 0.46 mg/dL (0.20-1.00); TOTAL PROTEIN 6.9 g/dL (6.3-8.3)
[2019-10-22] MEDS ORDERED: ATIVAN IV ONE (19:30)
[2019-10-22] MEDS ORDERED: THIAMINE 100 MG in NS 50 ML IV ONE (19:31)
--- NOTE | 2019-10-22 19:52 | PROVIDER DOCUMENTATION ---
This chart was entered by Wandy Patrick Scribe, acting as scribe for Ck Mesa MD. HPI-Chest Pain - General Chief Complaint: Chest Pain Stated Complaint: CP Time Seen by Provider: 10/22/19 16:18 Source: patient, EMS Allergies/Adverse Reactions: Patient Allergies Allergy/AdvReac Type Severity Reaction Status Date / Time No Known Allergies Allergy Verified 08/20/17 09:33 Home Medications: Home Medication List Medication Instructions Recorded Confirmed Last Taken Type Warfarin [Coumadin] 4 mg PO QHS 03/24/13 10/22/19 09/10/17 21:00 History LISINOpril [Prinivil] 5 mg PO DAILY #60 tablet 08/22/17 10/22/19 09/10/17 09:00 Rx Carvedilol [Coreg] 12.5 mg PO BID 05/30/19 10/22/19 Unknown History Spironolactone 25 mg PO DAILY 05/30/19 10/22/19 Unknown History Torsemide 20 mg PO DAILY 10/22/19 10/22/19 Unknown History - History of Present Illness-CP Nature of Presenting Problem: 44 yom presents to the ed via ems with c/o chest pain radiating into BUE and BLE. pt on exam sts "I got pain everywhere". pt sts pain onset has been for "days", when pt was asked to clarify he sts "just days". pt is homeless and on exam admits to drinking x3 beers today. pt is unkempt and smells of alcohol. pt sts can not take ASA due to hx of GI bleeds and has an allergy to nitro and was not given either by ems Location: reports: substernal Chest Pain Radiation: reports: other (BUE and BLE) Quality of Pain: reports: aching Severity in ED: moderate Onset/Duration: unsure (pt sts "days") Timing: still present Context/Activities at Onset: reports: light activity Modifying Factors: improves with: nothing Associated Symptoms: denies: abdominal pain, back pain, dizziness, nausea, shortness of breath, vomiting Nitro Today/Relief: no nitro taken today Aspirin Treatment Today: no aspirin today Prior Chest Pain/Cardiac Workup: reports: heart attack, other (stents) Similar Symptoms Previously?: Yes Recently Seen Here or By Another Healthcare Provider: No Review of Systems - Adult - REVIEW OF SYSTEMS - ADULT Constitutional: denies: chills, fever Eyes: reports: no symptoms reported Ears, Nose, Mouth & Throat: reports: no symptoms reported Cardiovascular: reports: see HPI, chest pain. denies: palpitations, syncope Respiratory: denies: cough, shortness of breath, wheezing Gastrointestinal: denies: diarrhea, nausea, vomiting Genitourinary: reports: no symptoms reported Musculoskeletal: reports: see HPI, muscle aches (generalized), other (BUE and BLE) Integumentary: reports: no symptoms reported Neurological: denies: dizziness/vertigo, headache/migraines Psychiatric: reports: no symptoms reported Endocrine: reports: no symptoms reported Hematologic/Lymphatic: reports: no symptoms reported Allergic/Immunologic: reports: no symptoms reported All Other Systems: Reviewed and Negative Past History - Adult - PAST MEDICAL HISTORY-ADULT Review of Records: reports: Old Records Reviewed, Nursing Assessment Review, Medications Reviewed, Social history reviewed & non-contributory. Major Childhood Illnesses: reports: denies history Cardiovascular: reports: aortic disease, CHF, HTN, heart valve problem ([facility] [place]) , [place] Respiratory: reports: denies history Gastrointestinal: reports: GI bleed Genitourinary: reports: denies history Musculoskeletal: reports: denies history Hand Dominance: Right Handed Neurological: reports: denies history Psychiatric: reports: denies history Endocrine/Immune: reports: denies history Other Conditions: reports: denies history - PRIOR SURGERIES/PROCEDURES Surgical/Procedure History: reports: CABG, cardiac stent - IMMUNIZATION STATUS Childhood Immunizations: See Nurse Assessment Flu Vaccine: See Nurse Assessment - FAMILY HISTORY Family History: reviewed, not pertinent - SOCIAL HISTORY Smoking: greater than 1 pack/day Provider spent 3-5 mins advising pt. on dangers of tobacco.: Discussed manners to quit use, and f/u contacts for add'l counseling. Substance Use: alcohol Alcohol Use Frequency: 3-4 times a week Number of drinks per typical drinking period:: 3-4 drinks Living Situation: homeless Physical Exam-General - PHYSICAL EXAM-ADULT Initial Vital Signs Reviewed: Yes (HR-126 ) - CONSTITUTIONAL General Appearance: appears well, alert, mild distress (pt c/o generalized pain when questioned but is nontoxic in apperance), other (pt smells of ETOH on exam and admits to drinking x3 beers today) - EYES Eyes: PERRL/EOMI, pink conjunctivae - HEAD, EARS, NOSE, MOUTH & THROAT HENMT: normocephalic/atraumatic, moist mucous membranes, normal ENT inspection - NECK Neck: non-tender, full range of motion, supple, normal inspection - RESPIRATORY Respiratory: chest non-tender, lungs clear, normal breath sounds - CARDIOVASCULAR Cardiovascular: normal peripheral pulses, tachycardia (126) - CHEST (BREASTS) Chest/Breast: deferred - GASTROINTESTINAL (ABDOMEN) Abdominal Exam: normal bowel sounds, non tender, soft - GENITOURINARY Male Genitalia: deferred Rectal Exam: deferred Hemoccult Exam: deferred - LYMPHATIC Lymphatic: no adenopathy - MUSCULOSKELETAL Back Exam: no CVA tenderness, no vertebral tenderness Extremity: normal range of motion, non-tender, normal inspection - SKIN Integumentary: normal color, normal turgor, warm/dry - NEUROLOGIC Neurologic: grossly normal - PSYCHIATRIC Psych/Mental Status: normal mood/affect, normal thought content, normal thought process, oriented x 3 Progress - PLAN OF CARE/RESULTS Progress/Plan/Lab Results: Vital Signs - 8 hr 10/22/19 16:47 10/22/19 16:58 10/22/19 17:00 Temperature 97.8 F Pulse Rate 127 H 126 H 130 H Respiratory Rate 23 18 15 Blood Pressure 117/74 117/74 O2 Sat by Pulse Oximetry 94 L 94 L 95 10/22/19 17:01 10/22/19 17:15 10/22/19 17:30 Temperature Pulse Rate 124 H 124 H 128 H Respiratory Rate 20 22 17 Blood Pressure 113/76 O2 Sat by Pulse Oximetry 97 94 L 94 L 10/22/19 17:45 10/22/19 18:00 10/22/19 18:03 Temperature Pulse Rate 115 H 116 H 136 H Respiratory Rate 15 15 23 Blood Pressure 105/72 O2 Sat by Pulse Oximetry 93 L 95 96 10/22/19 18:15 Temperature Pulse Rate 137 H Respiratory Rate 19 Blood Pressure O2 Sat by Pulse Oximetry 95 Laboratory Results - last 24 hr 10/22/19 10/22/19 10/22/19 16:55 16:55 16:55 WBC 5.64 RBC 3.97 L Hgb 13.6 L Hct 39.8 L MCV 100.3 H MCH 34.3 H MCHC 34.2 RDW Std Deviation 13.2 Plt Count 124 L MPV 10.4 Immature Gran % (Auto) 0.4 Neut % (Auto) 58.3 Lymph % (Auto) 25.9 Evans % (Auto) 11.9 H Eos % (Auto) 2.8 Baso % (Auto) 0.7 Immature Gran # (Auto) 0.02 Neut # (Auto) 3.29 Lymph # (Auto) 1.46 Evans # (Auto) 0.67 H Eos # (Auto) 0.16 Baso # (Auto) 0.04 Sodium 136 Potassium 4.4 Chloride 96 L Carbon Dioxide 22 L Anion Gap 18 BUN 13 Creatinine 0.9 Estimated GFR/1.73 m2 > 60 BUN/Creatinine Ratio 14 Glucose 117 H Calculated Osmolality 273 Calcium 8.9 Total Bilirubin 0.46 AST 99 H ALT 67 H Alkaline Phosphatase 84 Troponin T Otc-C-Jdphwiyfdfg Pept Total Protein 6.9 Albumin 4.3 Globulin 2.6 Albumin/Globulin Ratio 1.7 Lipase 63 H Plasma/Serum Ethyl Alc 361 H 10/22/19 10/22/19 16:55 16:55 WBC RBC Hgb Hct MCV MCH MCHC RDW Std Deviation Plt Count MPV Immature Gran % (Auto) Neut % (Auto) Lymph % (Auto) Evans % (Auto) Eos % (Auto) Baso % (Auto) Immature Gran # (Auto) Neut # (Auto) Lymph # (Auto) Evans # (Auto) Eos # (Auto) Baso # (Auto) Sodium Potassium Chloride Carbon Dioxide Anion Gap BUN Creatinine Estimated GFR/1.73 m2 BUN/Creatinine Ratio Glucose Calculated Osmolality Calcium Total Bilirubin AST ALT Alkaline Phosphatase Troponin T 0.038 Cqi-H-Uwtjfrcskek Pept 757 H Total Protein Albumin Globulin Albumin/Globulin Ratio Lipase Plasma/Serum Ethyl Alc Orders Category Date Time Status Regular Diet Diet 10/22/19 17:20 Active CHEST-PORTABLE [RAD] Stat Exams 10/22/19 16:20 Completed ALCOHOL BLOOD Stat Lab 10/22/19 16:55 Completed BNP [PRO B-NATRIURETIC PEPTIDE] Stat Lab 10/22/19 16:55 Completed CBC WITH ELECTRONIC DIFF [HEME] Stat Lab 10/22/19 16:55 Completed COMPREHENSIVE METABOLIC PANEL [CHEM] Stat Lab 10/22/19 16:55 Completed D-DIMER [COAG] Stat Lab 10/22/19 16:55 Received LIPASE [CHEM] Stat Lab 12/03/19 16:55 Completed PROTIME WITH INR [COAG] Stat Lab 10/22/19 16:55 Received PTT [COAG] Stat Lab 10/22/19 16:55 Received TROPONIN T Stat Lab 10/22/19 16:55 Completed 0.9% Sodium Chloride Inj [Ns] 1,000 ml Med 10/22/19 18:09 Discontinued IV 999 mls/hr Lorazepam [Ativan] Med 10/22/19 19:30 Discontinued 2 mg IV NOW ONE Mvi [M.v.i.-12] 10 ml Med 10/22/19 18:09 Discontinued Folic Acid 1 mg Magnesium Sulfate 1 gm Thiamine 100 mg 0.9% Sodium Chloride Inj [Ns] 1,000 ml IV NOW Thiamine 100 mg Med 10/22/19 19:31 Active 0.9% Sodium Chloride Inj [Ns] 50 ml IV NOW EKG [EKG] Stat Ther 10/22/19 16:19 Draft EKG [EKG] Stat Ther 10/22/19 19:18 Ordered Proceed to admit with Dr. Carroll hospitalist for chest pain observation. Patient aware and is not therapeutic with his INR and also has poor follow up as he is homeless currently. Given 1 L NS and 1 L banana bag. Initial EKG shows tachycardia and his initial troponin is elevated. He has acute alcohol intox ication. Given ativan for possible alcohol intoxication. Result Diagrams: 10/22/19 16:55 10/22/19 16:55 - REASSESSMENT Reassessment #1 Time Reassessed: 17:43 Status: unchanged - EKG 1 Time of EKG reading by physician:: 15:33 EKG Read and Signed by:: Ck Mesa EKG Interpretation (*Must complete 3 of following elements*): Abnormal Rate: 124 Rhythm: wide QRS tachycardia [place]: left (deviation) QRS: LBB LA Interval: normal ST Wave: normal - XRAY 1 XRAY Study: Chest Impression: See EMR Report (EXAM: CHEST-PORTABLE 10/22/2019 HISTORY: chest pain TECHNIQUE: AP portable at 1740 COMMENT: There is no evidence of acute cardiac or pulmonary disease. Compared to 05/30/2019 there has been no significant change in the appearance of the chest considering differences in inspiration. IMPRESSION: No evidence of acute disease. Electronically signed by Ken Montero 10/22/2019 5:55 PM) Departure - Departure Date of Disposition Decision: 10/22/19 Time of Disposition Decision: 19:50 DIAGNOSIS: Nonspecific chest pain, ETOH abuse, Tobacco use disorder, S/P TAVR (transcatheter aortic valve replacement), Coronary artery disease, ICD (implantable cardioverter-defibrillator) in place, Chronic anticoagulation, Alcohol intoxication Disposition: ADMITTED INPATIENT 09 Certified Medical Emergency: Emergent Condition: Fair Referrals and Follow-Ups: None,PCP [Primary Care Provider] - - Critical Care Note This patient required my direct & personal management of CC.: No Attestation - Physician/ LATOYA Attestation Patient care was provided by Advanced Practice Provider:: No The physician spent face to face time with patient:: Yes Advanced Practice Provider documentation review:: Supervising physician onsite and consulted in the evaluation and care of this patient. The physician did have a face to face encounter with the patient. This chart was documented by the indicated scribe, (Wandy Patrick Scribe) and accurately reflects the services I performed and decisions made by me, Ck Mesa MD, as attested by the provider's signature.
--- NOTE | 2019-10-22 20:35 | EKG Report ---
Test Performed on : 10/22/2019 7:23:04 PM Test Reason : rhythm change Blood Pressure : / mmHG Vent. Rate : 125 BPM Atrial Rate : 125 BPM P-R Int : 000 ms QRS Dur : 172 ms QT Int : 398 ms P-R-T Axes : 000 -28 105 degrees QTc Int : 574 ms Wide QRS tachycardia. Left bundle branch block Abnormal ECG When compared with ECG of 22-OCT-2019 15:33, (Unconfirmed) No significant change was found Unconfirmed Result
[2019-10-22 22:22] LABS: INR 3.52; PROTIME 36.4 Seconds (11.0-16.0); PTT 45.3 Seconds (22.3-41.8)
[2019-10-22] MEDS ORDERED: NITROGLYCERIN SL PRN (23:05)
[2019-10-22] MEDS ORDERED: ZOFRAN IV PRN (23:05)
[2019-10-22] MEDS ORDERED: TYLENOL PO PRN (23:05)
[2019-10-22] MEDS ORDERED: NS 500 ML IV ONE (23:11)
[2019-10-23] MEDS ORDERED: NS 500 ML IV ONE ×2 (00:15→03:31)
[2019-10-23 06:21] LABS: PROTIME 45.7 Seconds (11.0-16.0)
[2019-10-23 06:22] LABS: INR 4.64
[2019-10-23 06:28] LABS: CK INDEX 1.5 (0.0-2.5); CK-MB 3.88 ng/mL (0.0-5.0)
--- NOTE | 2019-10-23 06:58 | HISTORY AND PHYSICAL ---
PRIMARY CARE PHYSICIAN: None. CHIEF COMPLAINT: Chest pain and shortness of breath. HISTORY OF PRESENTING ILLNESS: A 44-year-old male with a history of coronary artery disease, hypertension, CHF, aortic valve replacement, who had presented to the emergency department with a 1-day history of having chest pain. The patient states that it was pressure-like, and he was short of breath. The patient was evaluated in the emergency department, and due to his presenting symptoms, it was thought that we would place him on observation for further evaluation and management. At the time of my examination, he had denied any headache, fever, chills, nausea, vomiting, diarrhea, hemoptysis, melena, weight changes, but complained of chest pain. PAST MEDICAL HISTORY: Includes coronary artery disease, hypertension, CHF with LV dysfunction, ascending aortic aneurysm. PAST SURGICAL HISTORY: Mechanical aortic valve replacement, coronary stent, ICD. ALLERGIES: No known drug allergies. CURRENT MEDICATIONS: Carvedilol 12.5 mg p.o. b.i.d., lisinopril 5 mg p.o. daily, spironolactone 25 mg p.o. daily, torsemide 20 mg p.o. daily, warfarin 4 mg p.o. at bedtime. SOCIAL HISTORY: A 30-[id number]-[id number] history of smoking. Admits to alcohol use regularly. Denies any illicit drug use. FAMILY HISTORY: Positive for coronary disease in father. REVIEW OF SYSTEMS: A 14-point review of systems is as in HPI, other systems negative. PHYSICAL EXAMINATION: GENERAL: Cooperative, friendly male. He is resting more comfortably now. VITAL SIGNS: Temperature 97.8 degrees, pulse 126, respirations 18, blood pressure 117/74. HEENT: Atraumatic, normocephalic. Extraocular movements intact. PERRLA. NECK: No masses. CHEST: Bibasilar rales. CARDIOVASCULAR: Regular rate and rhythm. ABDOMEN: Soft. Positive bowel sounds. EXTREMITIES: No edema. NEUROLOGIC: He is awake, alert, oriented x3. GENITOURINARY: No bladder distention. SKIN: Warm. IMAGING AND LABORATORY DATA: WBC 5.64, hemoglobin 13.6, hematocrit 39.8, platelets 124,000. Sodium 136, potassium 4.4, chloride 96, CO2 of 22, BUN is 13, creatinine 0.9, glucose is 117. ProBNP is 57. Chest x-ray: No acute disease. ASSESSMENT: A 44-year-old male with a history of coronary disease, hypertension, congestive heart failure, and mechanical heart valve, who had presented to the emergency department with a 1-day history of having chest pain. Will place the patient on observation for further evaluation and management. 1. Chest pain. 2. Status post mechanical aortic valve replacement. 3. Chronic anticoagulation therapy. 4. Hypertension. PLAN: 1. Will admit the patient to medical floor with telemetry. 2. Will continue with cardiac workup. Check EKG, serial cardiac enzymes. Will have the patient continue on aspirin. Will use sublingual nitroglycerin p.r.n. chest pain. 3. Will consult Cardiology. 4. Monitor ProTime and INR. Continue with his anticoagulation. 5. Will monitor blood pressure, and resume antihypertensive agent. 6. The patient is on Coumadin, and this will suffice for DVT prophylaxis. 7. Will continue to follow, reassess, and make further recommendations based on the patient's clinical course. cc: Yony Carroll MD
[2019-10-23] MEDS ORDERED: PRILOSEC PO SCH (07:00)
[2019-10-23] MEDS ORDERED: PRINIVIL PO SCH (09:00)
[2019-10-23] MEDS ORDERED: COREG PO SCH (09:00)
[2019-10-23] MEDS ORDERED: ALDACTONE PO SCH (09:00)
[2019-10-23] MEDS ORDERED: ASPIRIN PO SCH (09:00)
[2019-10-23 09:19] LABS: CHOLESTEROL 211 mg/dL (0-200); HDL 72 mg/dL (35-55); LDL 120 mg/dL; TRIGLYCERIDES 96 mg/dL (39-160); VLDL 19 mg/dL
[2019-10-23 09:52] LABS: CK INDEX 1.4 (0.0-2.5); CK-MB 3.96 ng/mL (0.0-5.0)
[2019-10-23] MEDS: DEMADEX PO SCH (10:50)
--- NOTE | 2019-10-23 11:20 | CARDIOLOGY CONSULTATION ---
DATE: 10/23/2019 REASON FOR CONSULTATION: Cardiology was consulted for chest pain and shortness of breath. HISTORY OF PRESENT ILLNESS: A 44-year-old gentleman with history of congestive heart failure, aortic valve replacement, significant cardiac history as noted below. He came to the emergency room with one-day history of chest pain he describes as pressure-like sensation and he was also short of breath. He drinks alcohol on a regular basis. His admission alcohol level was 361. He is followed at the [facility] and by Dr. Javed in [place]. The patient states that he had seen Dr. Javed earlier this week and he was stable. He also attends the [facility] at [place] on a regular basis. He has been advised to take diuretics on every alternate day basis as listed below. He does not complain of having any palpitations. REVIEW OF SYSTEMS: A 14-point review of systems was done. GI System: There is no nausea. There is no history of hematemesis or melena. Central Nervous System: No focal weakness to suggest a cerebrovascular accident or transient ischemic attack. Genitourinary: There is no dysuria or hematuria. PAST MEDICAL HISTORY: 1. Mechanical aortic valve replacement for bicuspid aortic valve in [address] [employer] valve. At that time he also had a Hemashield graft to the ascending aorta as he had ascending aorta aneurysm. 2. Patient had been noncompliant with his Coumadin and in 2013 had a thrombotic embolism of the left anterior descending artery and circumflex artery. He underwent thrombectomy and bare metal stent placement to the left anterior descending artery and circumflex artery. 3. Bundle branch block. 4. Ischemic cardiomyopathy with ejection fraction 20 to 25 percent. 5. Congestive heart failure. 6. Status post AICD placement, [employer] device, on 02/14/2018. 7. Anticoagulation therapy. 8. Tricuspid regurgitation with pulmonary artery systolic pressure of 63 mmHg in the past. 9. Alcohol abuse. 10. Nicotine dependence. OUTPATIENT MEDICATIONS: 1. Coreg 12.5 mg b.i.d. 2. Lisinopril 5 mg a day. 3. Spironolactone 25 mg a day. 4. Torsemide 20 mg on Monday, Monday, and Fridays. 5. Coumadin as directed. PHYSICAL EXAMINATION: Cardiovascular: On examination blood pressure was 123/73. Mechanical valve sounds noted. Respiratory System: Normal air entry. There is no crepitations or rhonchi. Abdomen: Soft, nontender. There was no guarding or rigidity. Bowel sounds were heard. Central Nervous System: Alert and oriented, was moving all 4 extremities. A detailed central nervous system examination not performed. HEENT: Atraumatic, normocephalic. Pupils were reacting to light. LABORATORY EXAMINATION: Sodium 136, potassium 4.4, BUN 13, creatinine 0.9. Cardiac enzymes negative. ProBNP elevated at 757. Hematology: WBC 5.64, hemoglobin 13.6, hematocrit 39.8, platelet count off 124. Toxicology plasma alcohol level was 361. Coagulation: INR was 3.5 to 4.64. ASSESSMENT AND PLAN: 1. Mr. Nima Peguero is a 44-year-old gentleman with history of chronic alcohol abuse, aortic valve replacement and ascending aorta graft placement for aneurysm in 2011, had a myocardial infarction with thrombotic embolization to the LAD and circumflex artery and underwent a bare metal stent to LAD and circumflex artery in 2013, congestive heart failure, ischemic cardiomyopathy. He came to the emergency room with chest pain and shortness of breath. From a cardiac standpoint, he has significant cardiac history. We will get an echocardiogram to reassess cardiac and valvular function and, in addition, set him up for a stress test to assess for and rule out ischemia. 2. He attends the heart failure clinic and has seen, per patient, Dr. Javed recently. I have not made any changes to his medications, going to continue with Coreg, lisinopril, spironolactone. He is euvolemic at the present time. 3. He has significant alcohol abuse and would recommend prophylaxis for DTs as well as planned. Thank you for the consult. We will follow hospital course. cc: Philip Stephenson MD
[2019-10-23] MEDS ORDERED: LEXISCAN ONE (14:59)
--- NOTE | 2019-10-23 15:45 | ECHO REPORT ---
ORDER DATE: 10/23/2019 MEASUREMENTS: 1. Septal thickness 0.6. 2. Left ventricular internal diameter diastole 8.1. 3. Posterior wall thickness 0.9. 4. Left ventricular internal diameter in systole 7.5. 5. Aortic root 3.2. 6. Left atrium 7.1. SUMMARY: 1. Adequate quality study. 2. Aortic valve has been replaced with mechanical prosthesis which appears to be well-seated. The peak gradient across aortic valve is 35 mmHg, mean gradient of 23 mmHg. Values are consistent with adequate prosthetic valve function. Aortic regurgitation can not be appreciated. Mitral, tricuspid, and pulmonic valves are without evidence of structural abnormality with mild to moderate mitral regurgitation, mild tricuspid regurgitation, and mild pulmonic insufficiency. Estimated systolic PA pressure by Doppler is approximately 45 mmHg. The aortic root is normal size. 3. Severe left ventricular enlargement with normal wall thickness demonstrated. Estimated left ejection fraction is approximately 10% to 15%. There is akinesis of the anteroseptal wall, septum, anterior wall, mid to apical lateral wall, and apex left ventricle. There is no evidence of intraventricular thrombus. The left atrium is severely enlarged. Right atrium and right ventricle are grossly normal size with grossly preserved right ventricular systolic function. There is a defibrillator lead in the right ventricle. 4. No pericardial effusion. 5. Appearance of inferior vena cava suggests normal central venous pressure. CONCLUSIONS: 1. Mechanical aortic valve prosthesis functioning adequately. 2. Mild to moderate mitral regurgitation. 3. Mild tricuspid regurgitation with mild to moderate pulmonary hypertension by Doppler. 4. Severe left ventricular enlargement with estimated left ejection fraction of 10% to 15% with akinesis of the anteroseptal wall, septum, anterior wall, mid to apical lateral wall, and apex. 5. Severe left atrial enlargement. cc: MD Regina Perry PA
--- NOTE | 2019-10-23 17:49 | Diag Imaging Result Document ---
PROCEDURE NAME: MYOCARDIAL PERF SCAN, STR/REST - 10/23/2019 SUMMARY: The patient was administered 11.8 mCi of technetium 99-m sestamibi after which resting cardiac images were obtained. Patient was subsequently administered Lexiscan 0.4 mg intravenously after which the heart rate went from 66 beats per minute to 106 beats per minute. The blood pressure went from 118/76 to 91/67. With Lexiscan, the patient denied chest discomfort. Following the administration of Lexiscan, the patient was administered 35.6 mCi of technetium-99m sestamibi, after which gated stress cardiac images were obtained. Baseline ECG demonstrated sinus rhythm with demand ventricular pacing. With Lexiscan, there were no diagnostic ST-segment changes. SPECT images were reconstructed in the short, horizontal long, and vertical long axes. Review of these images demonstrated a large severe defect uptake involving the anterior wall apex, and apical inferior wall on stress images which appears similar on resting images. No significant reversibility is evident. SPECT images suggests severe left ventricular enlargement. Gated images demonstrate a calculated left ventricular ejection fraction of 17% with global hypokinesis and, akinesis of the mid to apical anterior wall, apex, and apical inferior wall. CONCLUSIONS: 1. Adequate response to Lexiscan. 2. Clinically negative for chest pain. 3. Electrocardiographically, there were no diagnostic ST-segment changes on ECG following administration of Lexiscan. 4. Lexiscan sestamibi images demonstrate large fixed severe defect in distribution of left anterior descending coronary artery with corresponding akinesis consistent with previous myocardial infarction in distribution of left anterior descending coronary artery. There is no convincing scintigraphic evidence of inducible myocardial ischemia. Severe left ventricular enlargement, and severely depressed left ventricular systolic function demonstrated with calculated left ventricular ejection fraction of 17% in the setting of global hypokinesis and akinesis of the mid to apical anterior wall, apex, and apical inferior wall. Clinical correlation recommended. cc: MD Regina Perry PA
[2019-10-23] MEDS ORDERED: ATIVAN IV PRN (19:34)
[2019-10-23] MEDS ORDERED: COREG PO ONE (19:57)
[2019-10-23] MEDS ORDERED: COUMADIN PO SCH (21:00)
[2019-10-24 07:01] LABS: INR 3.78; PROTIME 38.5 Seconds (11.0-16.0)
--- NOTE | 2019-10-24 07:16 | EKG Report ---
Test Performed on : 10/24/2019 06:54:44 AM Test Reason : Follow up heaRT rhythm Blood Pressure : / mmHG Vent. Rate : 070 BPM Atrial Rate : 070 BPM P-R Int : 170 ms QRS Dur : 154 ms QT Int : 476 ms P-R-T Axes : 020 248 100 degrees QTc Int : 514 ms Suspect unspecified pacemaker failure Atrial-sensed ventricular-paced rhythm with occasional AV dual-paced complexes Abnormal ECG When compared with ECG of 22-OCT-2019 19:23, (Unconfirmed) Electronic ventricular pacemaker has replaced Wide QRS tachycardia. Vent. rate has decreased BY 55 BPM Confirmed by Josiah LIANG, Dre ([id number]) on 10/24/2019 8:39:06 AM
[2019-10-24 07:23] LABS: AGAP 15; BUN 12 mg/dL (8-22); CALCIUM 8.5 mg/dL (8.8-10.2); CHLORIDE 98 mmol/L (98-107); COSMO 273; CREATININE 1.1 mg/dL (0.7-1.2); ESTIMATED GFR > 60; GLUCOSE 90 mg/dL (70-104); MAGNESIUM 1.2 mg/dL (1.5-2.7); POTASSIUM 3.9 mmol/L (3.5-5.1); SODIUM 137 mmol/L (136-145); TCO2 24 mmol/L (25-35)
--- NOTE | 2019-10-24 08:09 | PROGRESS NOTE ---
DATE: 10/23/2019 INTERVAL HISTORY: Mr. Peguero was admitted for chest discomfort, feeling of shortness of breath and generalized weakness. In the emergency room, he was found to be profoundly hypotensive, requiring intravenous fluid resuscitation. He also had elevated INR and elevated alcohol abuse. Since then, he underwent nuclear medicine myocardial perfusion scan which had fixed large severe defect in the distribution of LAD and corresponding akinesis consistent with previous infarction without any scintigraphic evidence of inducible myocardial ischemia with ejection fraction of 17%. SUBJECTIVE: He denies any chest pain or shortness of breath at the moment. He states he drinks 2 beers, but never has any alcohol withdrawal. He states he takes his medications regularly. He states he does not remember when he saw his esthetician facialist last time. OBJECTIVE: Vital Signs: Temperature 97.8 degrees, pulse 80, respiratory rate 17, blood pressure 110/68, saturating 98% room air. He states previously his defibrillator company had called him to go to the emergency room since he was thought to be in atrial fibrillation, but he did not considering he was asymptomatic. General: Not in acute distress. HEENT: Oral cavity is moist. He smells of alcohol. Lungs: Air entry bilaterally equal. No wheeze or crackles. Cardiovascular: S1, S2. Irregularly irregular. He also has a mechanical S2, left-sided chest AICD defibrillator. No rub or gallop. Abdomen: Soft, nontender. Neck: No jugular venous distention. Extremities: No lower extremity edema. Neurologic: He is alert and oriented x3. He is mildly tremulous. LABORATORY DATA: CBC had anemia, elevated INR. He had normal kidney function. His troponins were 0.03, 0.02. He also had elevated ethyl alcohol. Microbiology, no data. IMAGING: Chest x-ray on admission did not have evidence of acute disease. ASSESSMENT AND PLAN: 1. Atypical chest discomfort and generalized weakness. His myocardial perfusion scan did not detect any inducible ischemia. It could be related to his hypotension and he has been repleted with intravenous fluid resuscitation. 2. History of mechanical aortic valve placement for bicuspid aortic valve in 2011, thrombotic embolism of left anterior descending and circumflex artery requiring bare metal stent in 2013, left bundle branch block, ischemic cardiomyopathy with ejection fraction of 25%, status post AICD in 2018, currently stable. I will give him a dose of carvedilol and I will resume his medications of diuretic, lisinopril and beta juan tomorrow, considering he was hypotensive in the morning time. I will also follow up with BMP and will resume his warfarin tomorrow. 3. Alcohol and tobacco abuse. I counseled him about stopping using this medication. I will keep him on thiamine and lorazepam as needed to avoid alcohol withdrawal. 4. Hypotension likely because of poor oral intake, intravascular volume depletion, and his baseline congestive heart failure, which improved after intravenous fluid resuscitation. I will follow up with EKG and BMP tomorrow. DISPOSITION: If the patient does not have any acute overnight event, my plan is to discharge him home tomorrow. He is in agreement. cc: Edy Mcdaniel MD
[2019-10-24] MEDS ORDERED: VITAMIN B-1 PO SCH (09:00)
[2019-10-24] MEDS: DEMADEX PO SCH (09:01)
[2019-10-24] MEDS: MAGNESIUM SULFATE 2 GM/S.W.I. 2 GM/50 ML IVPB IV SCH ×2 (11:08→13:43)
[2019-10-24] MEDS ORDERED: FLU VACCINE IM ONE (11:11)
[2019-10-24 12:09] VITALS: BP 121/86
[2019-10-24] MEDS ORDERED: ALDACTONE PO SCH (21:00)
[2019-10-24] MEDS ORDERED: PRINIVIL PO SCH (21:00)
[2019-10-24] MEDS ORDERED: COREG PO SCH (21:00)
[2019-10-24] MEDS ORDERED: COUMADIN PO SCH ×2 (21:00)
--- NOTE | 2019-10-25 17:01 | DISCHARGE SUMMARY ---
ADMISSION DATE: 10/22/2019 DISCHARGE DATE: 10/24/2019 DISCHARGE DISPOSITION: Home. DISCHARGE CONDITION: Hemodynamically stable. He is alert, oriented x3. HOSPITAL COURSE: He denies any chest pain, shortness of breath, body ache or tiredness. He denies any significant swelling of his legs. He is provided discharge instructions about following up with [facility] Failure Clinic, where he has a scheduled appointment on October 28, as well as his Coumadin Clinic, and has a discussion about decreasing the amount of blood pressure, as well as diuretic medications. DISCHARGE DIAGNOSES: 1. Atypical chest discomfort and generalized weakness. 2. Hypotension, iatrogenic, likely in the setting of use of multiple diuretics and antihypertensive medications along with intravascular volume depletion. 3. Alcohol intoxication. 4. Active tobacco abuse. OTHER DIAGNOSES: 1. History of mechanical aortic wall for bicuspid aortic wall in 2011. 2. History of thrombotic embolism of left anterior descending and circumflex artery requiring bare metal stent in 2013. 3. History of left bundle branch block. 4. History of ischemic cardiomyopathy with ejection fraction of 20 to 25 percent status post AICD in 2017. 5. History of congestive heart failure with reduced ejection fraction. 6. History of ascending aortic aneurysm. DISCHARGE MEDICATIONS: 1. Warfarin 6 mg on Monday, Monday, Monday and 4 mg on Monday, Monday, and Monday. 2. Carvedilol 6.25 mg b.i.d. 3. Spironolactone 25 mg daily. 4. Torsemide 20 mg every other day 3 times weekly. 5. Magnesium oxide 240 mg b.i.d., 10 powders have been prescribed. 6. Lisinopril 2.5 mg daily. CONSULTATION DURING HOSPITAL ADMISSION: Surgical Scheduler, Dr. Stephenson. VITALS: At the time of discharge, temperature 97.6 degrees, pulse 74, respiratory 18, blood pressure 120/80, saturating 97% on room air. PHYSICAL EXAMINATION: General: Not in acute distress. Oral cavity: Moist. Lungs: Air entry bilaterally equal. No wheezes, rhonchi, crackles. Heart: S1 is normal. S2 is mechanical. No murmur, rub, or gallop. Abdomen: Soft, nontender. He has a left-sided chest AICD pacemaker. Extremities: No lower extremity edema. Neurologic: He is alert and oriented x3. SIGNIFICANT LABS: During hospital admission and discharge, hemoglobin 13.6, platelet 124. INR is 3.7. BUN 12, creatinine 1.8. Magnesium was 1.2. He is getting 4 g of IV magnesium and he has been prescribed oral magnesium. Troponins was showing flat trend of 0.029. His lipase was 63. Plasma alcohol level was 361. MICROBIOLOGY: No microbiology. SIGNIFICANT IMAGING: Chest x-ray on admission did not have any evidence of acute disease. Echocardiogram had mechanical aortic valve prosthesis which was functioning adequately. Mild to moderate mitral regurgitation, severe left ventricular enlargement with a left ventricular ejection fraction of 10 to 15 percent with akinesia of anteroseptal wall, septum, anterior wall, mid to apical lateral wall and apex. Severe left atrial enlargement. Myocardial perfusion. Nuclear medicine scan had large fixed severe defect in the distribution of LAD with corresponding akinesis consistent with previous myocardial infarction in the distribution of LAD. There was no scintigraphic convincing evidence of inducible myocardial ischemia. Severe left ventricular enlargement and depressed ejection fraction of 17% with global hypokinesia and akinesia of the mid to apical anterior wall, apex and apical inferior wall. Electrocardiogram on presentation had a baseline left bundle branch block and wide complex QRS tachycardia. HOSPITAL COURSE SUMMARY: Mr. Peguero is a 44-year-old man with a past medical history of alcohol abuse, tobacco abuse, medication noncompliance, as well as ischemic cardiomyopathy with ejection fraction of 15 to 20 percent status post AICD, who came in on 10/22/2019 with chief complaint of chest discomfort. It was pressure-like and he was short of breath. He was evaluated in the emergency department and was thought that he would need observation for further management. He was also found to be hypotensive in the emergency department, where his blood pressure occasionally was as low as 80/60 and 60/40. He was aggressively rehydrated with intravenous fluids following which his blood pressure increased. So, the cardiology team was consulted, and he underwent nuclear medicine stress test which was unremarkable for any inducible ischemia. It was thought that his complaints were related to his baseline heart failure, and hypotension was thought to be related to too much of antihypertensive medication, which got better after holding of his antihypertensive medication, as well as intravascular volume rehydration. He was provided detailed discharge instruction to follow up with heart failure clinic and about having a discussion about these medication changes. All of his questions were answered. TIME SPENT: More than 30 minutes of time was spent in discharging this patient. cc: Edy Mcdaniel MD MTDD
[2019-10-25] MEDS ORDERED: COUMADIN PO SCH (21:00)
== END 2019-10-24 15:11 | disposition home or self-care (01) | DRG 313 ==
LOC: SUPCPDRO → ED 15:32 → EDIPHOLD 15:32 → OBSVTOIN 22:35 → SUATTDRO 10-23 01:10 → 4N 10-23 08:44
PROVIDERS: ATTEND Internal Medicine

== ENCOUNTER 2019-12-03 11:16 | Inpatient (IN) ==
--- NOTE | 2019-12-03 12:22 | Diag Imaging Result Doc PS360 ---
EXAM: CHEST-2 VIEWS 12/03/2019 HISTORY: SOB + AFIB RVR TECHNIQUE: PA and lateral chest COMMENT: There are sternotomy wires. Considering differences in technique and projection there has been no significant change since 10/22/2019. The lungs appear to be clear. IMPRESSION: Stable chest. Electronically signed by Ken Montero 12/03/2019 12:19 PM
[2019-12-03 13:04] LABS: BASO# 0.07 X1000 (0.0-0.2); BASO% 0.9 % (0.0-0.8); EOS# 0.16 X1000 (0.0-0.7); HEMATOCRIT 33.6 % (42.0-52.0); HEMOGLOBIN 11.4 g/dL (14.0-18.0); IMM GRAN# 0.07 X1000 (0.0-0.04); IMM GRAN% 0.9 % (0.0-0.5); LYMPH# 1.14 X1000 (1.2-3.4); LYMPH% 14.3 % (20.5-51.1); MCH 34.9 PG (27-31); MCHC 33.9 g/dL (33-37); MCV 102.8 FL (81-99); MPV 10.6 FL (7.4-10.4); NEUT# 5.34 X1000 (1.4-6.5); NEUT% 66.9 % (42.2-75.2); PLT 217 X1000 (130-400); RBC 3.27 XMIL (4.7-6.1); RDW 13.1 % (11.5-14.5); WBC 7.98 X1000 (4.8-10.8)
[2019-12-03 13:22] LABS: INR 1.94; PROTIME 22.6 Seconds (11.0-16.0)
[2019-12-03 13:23] LABS: PTT 37.4 Seconds (22.3-41.8)
[2019-12-03 13:27] LABS: BUN 22 mg/dL (8-22); CALCIUM 8.8 mg/dL (8.8-10.2); CREATININE 1.1 mg/dL (0.7-1.2); ESTIMATED GFR > 60; GLUCOSE 132 mg/dL (70-104); MAGNESIUM 1.4 mg/dL (1.5-2.7); TCO2 20 mmol/L (25-35)
--- NOTE | 2019-12-03 13:30 | EKG Report ---
Test Performed on : 12/03/2019 11:28:09 AM Test Reason : CP Blood Pressure : / mmHG Vent. Rate : 135 BPM Atrial Rate : 135 BPM P-R Int : 000 ms QRS Dur : 178 ms QT Int : 408 ms P-R-T Axes : 000 -49 134 degrees QTc Int : 612 ms Wide QRS tachycardia. with occasional premature ventricular complexes. Left axis deviation Left bundle branch block Abnormal ECG When compared with ECG of 24-OCT-2019 06:54, Wide QRS tachycardia. has replaced Electronic ventricular pacemaker Vent. rate has increased BY 65 BPM Unconfirmed Result
[2019-12-03 13:34] LABS: CHLORIDE 93 mmol/L (98-107); POTASSIUM 3.8 mmol/L (3.5-5.1); SODIUM 128 mmol/L (136-145)
[2019-12-03] MEDS ORDERED: MAGNESIUM SULFATE 2 GM/S.W.I. 2 GM/50 ML IVPB IV ONE (13:45)
[2019-12-03] MEDS ORDERED: MORPHINE IV ONE (13:53)
[2019-12-03 14:16] LABS: AGAP 15; COSMO 262
[2019-12-03] MEDS ORDERED: LASIX IV ONE (14:47)
[2019-12-03] MEDS ORDERED: LOPRESSOR 10 MG in NS 50 ML IV ONE (15:06)
[2019-12-03] MEDS ORDERED: CORDARONE 360 MG/D5W 360 MG/200 ML IV.SOLN IV ONE (15:23)
[2019-12-03] MEDS ORDERED: CARDIZEM IV ONE (16:17)
[2019-12-03 16:29] LABS: URINE SOURCE CLEAN CATCH
--- NOTE | 2019-12-03 16:37 | CARDIOLOGY CONSULTATION ---
DATE: 12/03/2019 CHIEF COMPLAINT: Shortness of breath. HISTORY OF PRESENT ILLNESS: Mr. Pegureo is a 44-year-old white male with an ischemic cardiomyopathy, mechanical aortic valve and ICD. He follows with Dr. Javed in the [facility] in [place]. He was seen at the [facility] yesterday and presented in 2:1 flutter. This was evaluated via interrogation of his ICD. He was instructed to go to the ER but at that time refused, subsequently presented today where he actually told to go to the ER today as opposed to the correct instructions which were to go yesterday. He reports increasing dyspnea with exertion. He has no chest pain. He denies any sensation of palpitations. He is not having any exertional chest pain. PAST MEDICAL HISTORY: 1. Significant for ischemic cardiomyopathy with ejection fractions most recently in the 15% range. He has a biventricular ICD in place. He follows at the [facility]. 2. He has a [address] [employer] mechanical aortic valve placed in 2011 for a bicuspid valve. 3. He has a history of embolism down the left anterior descending due to noncompliance with his Coumadin and his mechanical valve. 4. Left bundle branch block. 5. Previous history of alcohol and nicotine abuse. SOCIAL HISTORY: Apparent continued tobacco use. FAMILY HISTORY: Significant for hypertension. REVIEW OF SYSTEMS: A 10 system review of systems is negative except for those things mentioned in HPI. PHYSICAL EXAMINATION: He is afebrile. His heart rate is in the 130s to 140s. His most recent blood pressure is 106/78. General: He is in no acute distress. HEENT: Oropharynx is moist. Poor dentition. Eye examination shows pink conjunctivae. White sclerae. Neck: Shows no obvious thyromegaly or thyroid tenderness. Cardiovascular: He is in a tachycardic and regular rhythm. He has no obvious murmurs. He has no S3. He has trace to 1+ bilateral lower extremity edema. Chest: Has basilar rales. He has no increased work of breathing. Abdomen: Soft, nontender, nondistended. He has no obvious organomegaly. Skin: Warm and dry throughout without any rashes. Neurological: He is moving all extremities well. PERTINENT DATA: His chest x-ray shows no evidence of significant abnormalities. He has sternotomy wires in place. His electrocardiogram shows a wide complex tachycardia, rate of 135 beats per minute. Old EKGs have shown that he has a baseline left bundle. His laboratory data shows a white count of 7.9, his hematocrit is 33, his platelet count is 217,000. His INR is 1.9. His sodium is 128, potassium 3.8, BUN 22, creatinine is 1.1, his magnesium level is 1.4, his troponin is 0.106, his proBNP is 5260. ASSESSMENT: Mr. Peguero is a 44-year-old gentleman with an ischemic cardiomyopathy. He presents in atrial flutter. PLAN: He has a long history of noncompliance such that he has actually been discharged from the [facility] in [place]. He continues to follow with the [facility] Failure Clinic and sees Dr. Javed. He has had frequent issues with arrhythmias and noncompliance with followup. He has not tolerated amiodarone in the past due to a rash. For now, we will try to control him with diltiazem and place him back on his home Coreg. If we have difficulty controlling his rate, we may try to get him over to [place] to consider an AV node ablation as these arrhythmias ,per discussion with the [facility] Failure Clinic, have been a frequent issue. cc: Kp Amador MD MTDTitus
[2019-12-03 16:39] LABS: BILIRUBIN URINE NEGATIVE (NEGATIVE); BLOOD URINE NEGATIVE (NEGATIVE); COLOR YELLOW; GLUCOSE URINE TRACE mg/dL (NEGATIVE); KETONE URINE NEGATIVE (NEGATIVE); LEUKOCYTES URINE NEGATIVE (NEGATIVE); NITRITE URINE NEGATIVE (NEGATIVE); PROTEIN URINE TRACE mg/dL (NEGATIVE); SP GRAVITY URINE 1.018; TURBIDITY URINE CLEAR (CLEAR); UROBILINOGEN URINE 2 mg/dL (NORMAL)
[2019-12-03 16:48] LABS: UR EPITHELIAL CELLS <10 /HPF (<10); URINE BACTERIA NEGATIVE /HPF; URINE RBC <10 /HPF (<10); URINE WBC <10 /HPF (<10)
[2019-12-03 17:05] LABS: URINE CASTS NONE SEEN; URINE CRYSTALS NONE SEEN; URINE YEAST NONE SEEN
[2019-12-03] MEDS: CARDIZEM 100 MG/NS 100 MG/100 ML IVPB IV SCH (17:28)
[2019-12-03] MEDS ORDERED: LANOXIN IV ONE (17:44)
[2019-12-03 17:46] LABS: UR AMPHETAMINES QUAL NONE DETECTED (NONE DETECT); UR BARBITUATES QUAL NONE DETECTED (NONE DETECT); UR BENZODIAZEPIN QUAL NONE DETECTED (NONE DETECT); UR CANNABINOIDS QUAL NONE DETECTED (NONE DETECT); UR COCAINE QUAL NONE DETECTED (NONE DETECT); UR METHADONE QUAL NONE DETECTED (NONE DETECT); UR OPIATES QUAL PRESUMPTIVE POSITIVE (NONE DETECT); UR OXYCODONE QUAL NONE DETECTED (NONE DETECT); UR PCP QUAL NONE DETECTED (NONE DETECT)
--- NOTE | 2019-12-03 19:50 | HISTORY AND PHYSICAL ---
CHIEF COMPLAINT: Shortness of breath. HISTORY OF PRESENT ILLNESS: This is a 44-year-old male with ischemic cardiomyopathy, mechanical aortic valve, chronic left bundle, history of alcohol and nicotine abuse. Anyway, he came in. He was seen in the [facility] per Dr. Javed. He has been [facility] by [facility] but was let go because of poor compliance. He came in yesterday with a week's worth of shortness of breath and overall just not feeling well. His defibrillator was interrogated, and he was found to be in atrial flutter with a 2:1 block. He was instructed to go to the ER but did not, and then he came in today for that. Denies any chest pain. No palpitations. He does not have a history of atrial fibrillation that is apparent. In any case, he was admitted for a wide complex tachycardia, which is most likely fibrillation or flutter with aberrancy, and he has a chronic left bundle branch block. PAST MEDICAL HISTORY: 1. Ischemic cardiomyopathy. EF is 10% to 15% with a biventricular ICD. 2. Mechanical aortic valve 2011. 3. CAD. 4. Left bundle branch block. 5. Alcohol and nicotine abuse. SOCIAL HISTORY: No current tobacco use. ALLERGIES: No known drug allergies. MEDICATIONS: He is on warfarin, alternating doses of warfarin. Coreg is 12.5 b.i.d., spironolactone 25 daily, Torsemide 20 daily. He has issues with poor compliance. REVIEW OF SYSTEMS: Otherwise negative [id number] review of systems. PHYSICAL EXAMINATION: VITAL SIGNS: Blood pressure 106/78, heart rate of 145, he was 130s, respiratory rate of 20, temperature 97.6 degrees. GENERAL: A well-developed male in no acute distress. HEAD EXAM: Normocephalic, atraumatic. EYE EXAM: Pupils equal, round, reactive to light. Extraocular movements were intact. EARS, NOSE AND THROAT EXAM: He had moist mucous membranes. NECK EXAM: Supple. CARDIOVASCULAR EXAM: Regular rate and rhythm. No murmurs, gallops, or rubs. PULMONARY EXAM: Bilateral breath sounds clear to auscultation. GASTROINTESTINAL: Soft, nontender, nondistended. Bowel sounds are positive. EXTREMITY EXAM: He had no edema, and he also had acrocyanosis, but he had 2+ pulses in his dorsalis pedis. I think this is just poor perfusion. LABORATORY DATA: White count 7, hemoglobin and hematocrit 11 and 33, platelets 217,000. INR 1.9. Sodium 128, high sensitive troponin of 106, Mag of 1.4. Urine was clear. Urine drug screen was positive for opiates. ASSESSMENT: This is a 44-year-old male with congestive heart failure, status post implantable cardioverter defibrillator and now with atrial flutter with rapid ventricular response. 1. Atrial flutter with rapid ventricular response. We will continue to monitor. I initially ordered amiodarone. Dr. Amador has since seen the patient and switched him to Cardizem. He has apparently not tolerated amiodarone in the past. He may need to be direct current cardioverted, and there is certainly a concern over atrioventricular node ablation, so we will continue to monitor. Appreciate cardiac input. 2. Congestive heart failure, but I think he is compensated; however, that being said, he is certainly at risk for decompensation. We will continue his regular medicines and follow. 3. Mechanical aortic valve. He is on Coumadin. He is not quite therapeutic. We will continue to monitor that and adjust his Coumadin. Goal INR presumably will be 2.5 to 3.5. 4. Noncompliance. We will encourage compliance and follow closely This is a service admission. His primary pool installer is Dr. Javed. I do not have any current one there. cc: Ellis Cardenas MD
[2019-12-03] MEDS ORDERED: LOPRESSOR PO PRN (20:16)
[2019-12-03] MEDS: COREG PO SCH (20:38)
[2019-12-03] MEDS: MAG-OX PO SCH (20:38)
[2019-12-03] MEDS ORDERED: COUMADIN PO SCH (21:00)
[2019-12-03] MEDS ORDERED: LOPRESSOR IV PRN (21:18)
--- NOTE | 2019-12-03 21:18 | VASCULAR LAB ---
PROCEDURE NAME: Arterial Bilateral Legs - 12/03/2019 REFERRING PHYSICIAN: Ellis Cardenas MD AGE: A 44-year-old male. EXPERIMENTAL ELECTRONICS DEVELOPER: Jennyfer Guallpa RVT. INDICATIONS: History of atrial fibrillation, peripheral vascular disease and ischemic toes. FINDINGS: Systolic brachial blood pressure on the right is 116 mmHg, on the left 104 mmHg. Right high thigh 138 mmHg, left high thigh 142 mmHg. Right low thigh 129 mmHg, left low thigh 131 mmHg. Right calf 124 mmHg, left calf 157 mmHg. Right ankle is 145 mmHg, left ankle 144 mmHg. There is pulsatile flow in both feet. There is diminished pulsatile flow in both great toes. At rest, the right ankle-brachial index is 1.25, left ankle-brachial index is 1.24. INTERPRETATION: Good pulsatile waveforms throughout both lower extremities at rest. There may be some small-vessel disease involving the distal foot with diminished pulse waveforms involving both great toes. cc: MD Ellis Edwards MD
[2019-12-03] MEDS ORDERED: CORDARONE 540 MG in D5W 289.2 ML IV ONE (21:23)
[2019-12-04] MEDS: NORCO-7.5 PO PRN ×3 (00:52→21:05)
[2019-12-04] MEDS: CARDIZEM 100 MG/NS 100 MG/100 ML IVPB IV SCH ×2 (01:26→13:28)
[2019-12-04 06:42] LABS: BASO# 0.07 X1000 (0.0-0.2); BASO% 1.1 % (0.0-0.8); EOS% 4.9 % (0.0-10.0); HEMATOCRIT 32.4 % (42.0-52.0); HEMOGLOBIN 10.7 g/dL (14.0-18.0); IMM GRAN# 0.07 X1000 (0.0-0.04); IMM GRAN% 1.1 % (0.0-0.5); LYMPH# 1.24 X1000 (1.2-3.4); LYMPH% 20.2 % (20.5-51.1); MCH 34.4 PG (27-31); MCV 104.2 FL (81-99); MONO# 0.87 X1000 (0.11-0.59); MONO% 14.1 % (1.7-9.3); MPV 10.7 FL (7.4-10.4); NEUT% 58.6 % (42.2-75.2); PLT 211 X1000 (130-400); RBC 3.11 XMIL (4.7-6.1); RDW 13.2 % (11.5-14.5); WBC 6.15 X1000 (4.8-10.8)
[2019-12-04 06:43] LABS: AGAP 13; BUN 17 mg/dL (8-22); CALCIUM 8.5 mg/dL (8.8-10.2); CHLORIDE 93 mmol/L (98-107); COSMO 266; ESTIMATED GFR > 60; GLUCOSE 104 mg/dL (70-104); INR 1.94; MAGNESIUM 1.6 mg/dL (1.5-2.7); POTASSIUM 3.6 mmol/L (3.5-5.1); PROTIME 22.6 Seconds (11.0-16.0); SODIUM 132 mmol/L (136-145); TCO2 26 mmol/L (25-35)
[2019-12-04] MEDS ORDERED: DEMADEX PO SCH (09:00)
--- NOTE | 2019-12-04 09:10 | EKG Report ---
Test Performed on : 12/04/2019 08:57:14 AM Test Reason : afib Blood Pressure : / mmHG Vent. Rate : 080 BPM Atrial Rate : 051 BPM P-R Int : 000 ms QRS Dur : 226 ms QT Int : 546 ms P-R-T Axes : 000 257 072 degrees QTc Int : 629 ms Suspect unspecified pacemaker failure Ventricular-paced rhythm Abnormal ECG When compared with ECG of 03-DEC-2019 11:28, (Unconfirmed) Electronic ventricular pacemaker has replaced Wide QRS tachycardia. Vent. rate has decreased BY 55 BPM Confirmed by Carlyle LIANG, Tigre Ray ([id number]) on 12/05/2019 12:22:51 PM
[2019-12-04] MEDS: MAG-OX PO SCH ×2 (09:33→21:05)
[2019-12-04] MEDS: COREG PO SCH ×2 (09:33→21:05)
[2019-12-04] MEDS: LASIX IV SCH ×3 (09:33→21:06)
[2019-12-04] MEDS: ALDACTONE PO SCH (09:33)
[2019-12-04] MEDS: CARDIZEM PO SCH ×2 (14:21→21:05)
--- NOTE | 2019-12-04 14:53 | PROGRESS NOTE ---
DATE: 12/04/2019 SUBJECTIVE: He is still complaining of a lot of pain in his feet. He required pain medication last night. OBJECTIVE: Blood pressure 99/71, heart rate of 80, respiratory 18, temperature 97.7 degrees, 95% on room air.Cardiovascular: Regular rate and rhythm. Pulmonary: Bilateral breath sounds clear to auscultation. Gastrointestinal: Abdomen soft, nontender, nondistended. Bowel sounds are positive. LABORATORY DATA: White count 6, hemoglobin and hematocrit 10 and 32, platelets 211,000. Basic was normal except for sodium of 132. Troponin T was mildly elevated at 171 with a normal creatinine. PROBLEM LIST: 1. Presumed atrial fibrillation with rapid ventricular response. He is controlled now on Cardizem. He had been on Coreg. May switch him to just some p.o. Coreg at low dose. Dr. Amador will evaluate. He will likely need EP evaluation and ablation. 2. Congestive heart failure appears to be compensated. 3. Mechanical aortic valve. On current medications his Coumadin, INR is still not real high. I am just going to put him on 5 for right now until we can adjust it because he is subtherapeutic. 4. We will continue to monitor closely. DISPOSITION: Pending his clinical status. cc: Ellis Cardenas MD
[2019-12-04] MEDS ORDERED: COUMADIN PO SCH (21:00)
--- NOTE | 2019-12-04 22:11 | CARDIOLOGY PROGRESS NOTE ---
DATE: 12/04/2019 SUBJECTIVE: The patient reports some trouble with his left great toe. He says he feels like the 1st and 2nd toes on that foot are sticking together. There is no overt pain, no edema. No chest pain. No palpitations. PHYSICAL EXAMINATION: Vital Signs: Afebrile. Heart rate 80, blood pressure 101/71. General: No acute distress. Cardiovascular: He sounds to be in a regular rate and rhythm. He appears to be in a ventricular paced rhythm. Device evaluation today demonstrates atrial fibrillation. He has no lower extremity edema. Extremities: His left great toe does not have any appreciable abnormalities on physical examination. He has intact dorsalis pedis pulses both on both legs that feel 2+. Chest: Clear by auscultation bilaterally. No increased work of breathing. His abdomen is soft, nontender. PERTINENT DATA: White count 6.1, hematocrit 32, platelet count is 211. His sodium is 132, potassium 3.6, BUN 17, creatinine 1. His magnesium level was 1.6. ASSESSMENT/PLAN: Mr. Peguero is a 44-year-old gentleman with ischemic cardiomyopathy. He presents in atrial fibrillation. His rate is reasonably controlled. We will likely transition him over to long-acting diltiazem in the morning in addition to his current Coreg dose. He has been on diuretics, and it seems like he is overall improving. If his rate is controlled, then I believe he can likely be discharged in the morning. He has ankle-brachial indices of around 1.2 bilaterally. cc: Kp Amador MD
[2019-12-05 07:12] LABS: BASO# 0.05 X1000 (0.0-0.2); EOS# 0.43 X1000 (0.0-0.7); EOS% 8.6 % (0.0-10.0); HEMATOCRIT 32.8 % (42.0-52.0); HEMOGLOBIN 10.8 g/dL (14.0-18.0); IMM GRAN# 0.06 X1000 (0.0-0.04); IMM GRAN% 1.2 % (0.0-0.5); LYMPH# 1.09 X1000 (1.2-3.4); LYMPH% 21.8 % (20.5-51.1); MCH 34.3 PG (27-31); MCHC 32.9 g/dL (33-37); MCV 104.1 FL (81-99); MONO# 0.68 X1000 (0.11-0.59); MONO% 13.6 % (1.7-9.3); MPV 10.9 FL (7.4-10.4); NEUT# 2.69 X1000 (1.4-6.5); NEUT% 53.8 % (42.2-75.2); PLT 198 X1000 (130-400); RBC 3.15 XMIL (4.7-6.1)
[2019-12-05 07:18] LABS: INR 2.05; PROTIME 23.6 Seconds (11.0-16.0)
[2019-12-05 07:37] LABS: AGAP 13; BUN 12 mg/dL (8-22); CALCIUM 8.9 mg/dL (8.8-10.2); CHLORIDE 93 mmol/L (98-107); COSMO 264; CREATININE 0.9 mg/dL (0.7-1.2); ESTIMATED GFR > 60; GLUCOSE 97 mg/dL (70-104); MAGNESIUM 1.7 mg/dL (1.5-2.7); POTASSIUM 3.3 mmol/L (3.5-5.1); SODIUM 132 mmol/L (136-145); TCO2 26 mmol/L (25-35)
[2019-12-05] MEDS ORDERED: POTASSIUM CHLORIDE 20% LIQUID PO ONE (08:50)
[2019-12-05] MEDS: CARDIZEM CD PO SCH (08:58)
[2019-12-05] MEDS: MAG-OX PO SCH ×2 (08:58→21:05)
[2019-12-05] MEDS: COREG PO SCH ×2 (08:58→21:05)
[2019-12-05] MEDS: ALDACTONE PO SCH (08:58)
[2019-12-05] MEDS: LASIX IV SCH (08:58)
[2019-12-05] MEDS: NORCO-7.5 PO PRN ×2 (09:08→18:13)
--- NOTE | 2019-12-05 13:16 | PROGRESS NOTE ---
DATE: 12/05/2019 SUBJECTIVE: The patient feels the pain in his feet is better. He overall feels better. He is still having some difficulty ambulating. OBJECTIVE: Vital Signs: Blood pressure is 105/76, heart rate of 90, respiratory rate 16, temperature 98.6 degrees. Cardiovascular: Regular rate and rhythm. Pulmonary: Bilateral breath sounds, clear to auscultation. Gastrointestinal: Soft, nontender, nondistended. Bowel sounds were positive. LABORATORY DATA: White count is 5, hemoglobin and hematocrit of 10 and 32, platelets of 198,000. INR is 2. Sodium is 132, potassium 3.3. ProBNP is down to 1411 from 5260. PROBLEM LIST: 1. Atrial fibrillation flutter with RVR, confirmed per interrogation. He is on Coreg and adjusted dose of Cardizem. Dr. Amador feels he is stable for discharge. 2. Congestive heart failure appears to be overall compensated. We will continue to monitor. 3. Mechanical aortic valve. His INR is still not quite therapeutic. We will continue to monitor, but it is a little bit more therapeutic. 4. PVD versus acrocyanosis. He is still having significant pain walking. His arterial studies are negative. The purpura kind of cyanotic changes I think are possibly a Raynaud type situation versus a true. We will encourage ambulation, and we will continue to monitor. I may get a surgical opinion, but again this is not a vascular insufficiency. I think he has just got poor perfusion, so I am not sure about pentoxifylline and things like that in this setting. We may get a vascular opinion, but I anticipate discharge soon, tomorrow. I think he is stable to go to the floor. cc: Ellis Cardenas MD
--- NOTE | 2019-12-05 13:43 | CARDIOLOGY PROGRESS NOTE ---
DATE: 12/05/2019 SUBJECTIVE: Mr. Peguero reports continued mild tenderness to the plantar aspect of his foot. He has no edema. No palpitations. PHYSICAL EXAMINATION: Vital Signs: Afebrile. Heart rate 75, blood pressure 110/79. General: He is in no acute distress. Cardiovascular: He sounds to be in a regular rate and rhythm. He has no murmurs. He has no S3. He has no lower extremity edema. He has warm and well perfused extremities. Chest: His chest exam is clear bilaterally. He has no increased work of breathing. Gastrointestinal: His abdomen is soft and nontender. PERTINENT DATA: Lab-mancilla, his white count is 5, his hematocrit is 32, platelet count is 198,000. His INR is 2. Sodium 132, potassium 3.3, magnesium level 1.7. ASSESSMENT: Mr. Peguero is a 44-year-old gentleman with a severe ischemic cardiomyopathy who presented with rapid atrial fibrillation. PLAN: At this point he can be discharged home. He needs to be followed up by Dr. Javed, his primary sales agent food vending service. Dr. Javed can make decisions regarding whether he would be an appropriate candidate for an AV node ablation, which could be considered as he already has a biventricular device in place. He has a therapeutic INR. I will replete his potassium and his magnesium. cc: Kp Amador MD
[2019-12-05] MEDS: LYRICA PO SCH (21:05)
[2019-12-06 07:39] LABS: INR 1.69; PROTIME 20.2 Seconds (11.0-16.0)
[2019-12-06 07:40] LABS: BASO# 0.06 X1000 (0.0-0.2); BASO% 1.2 % (0.0-0.8); EOS# 0.36 X1000 (0.0-0.7); EOS% 7.1 % (0.0-10.0); HEMATOCRIT 33.7 % (42.0-52.0); IMM GRAN# 0.06 X1000 (0.0-0.04); IMM GRAN% 1.2 % (0.0-0.5); LYMPH# 1.16 X1000 (1.2-3.4); LYMPH% 22.8 % (20.5-51.1); MCHC 32.6 g/dL (33-37); MONO# 0.62 X1000 (0.11-0.59); MONO% 12.2 % (1.7-9.3); MPV 10.3 FL (7.4-10.4); NEUT# 2.82 X1000 (1.4-6.5); NEUT% 55.5 % (42.2-75.2); PLT 225 X1000 (130-400); RBC 3.24 XMIL (4.7-6.1); RDW 12.8 % (11.5-14.5); WBC 5.08 X1000 (4.8-10.8)
[2019-12-06 08:05] LABS: AGAP 11; BUN 11 mg/dL (8-22); CALCIUM 9.4 mg/dL (8.8-10.2); CHLORIDE 96 mmol/L (98-107); COSMO 268; CREATININE 0.9 mg/dL (0.7-1.2); ESTIMATED GFR > 60; GLUCOSE 111 mg/dL (70-104); MAGNESIUM 1.8 mg/dL (1.5-2.7); POTASSIUM 4.3 mmol/L (3.5-5.1); SODIUM 134 mmol/L (136-145); TCO2 27 mmol/L (25-35)
[2019-12-06] MEDS ORDERED: LASIX PO SCH (09:00)
[2019-12-06] MEDS: COREG PO SCH (09:29)
[2019-12-06] MEDS: ALDACTONE PO SCH (09:29)
[2019-12-06] MEDS: NORCO-7.5 PO PRN (09:30)
[2019-12-06] MEDS: CARDIZEM CD PO SCH (09:30)
[2019-12-06] MEDS: MAG-OX PO SCH (09:30)
[2019-12-06] MEDS: LYRICA PO SCH (09:30)
[2019-12-06] MEDS ORDERED: COUMADIN PO ONE (11:27)
[2019-12-06 12:20] VITALS: BP 101/73
[2019-12-07] MEDS ORDERED: COUMADIN PO SCH (21:00)
== END 2019-12-06 14:14 | disposition home or self-care (01) | DRG 310 ==
LOC: EDIPHOLD 11:16 → ED 11:16 → OBSVTOIN 15:34 → EDIPHOLD 16:25 → 2N 17:43 → 3N 12-05 22:49
PROVIDERS: ATTEND Internal Medicine